=== PATIENT | female | born 1985 | race Caucasian/White ===

== ENCOUNTER → 2017-12-08 | Outpatient (REF) | LOC: M SMT 13:01 | DX: Z02.71 Encounter for disability determination (principal) ==

== ENCOUNTER 2019-09-06 19:22 | Emergency (ER) | payer OTHER ==
[~2019-09-06] VITALS: Ht 175.3 cm; Wt 139.2 kg
[2019-09-06 19:22] VITALS: BP 162/80
[2019-09-06] MEDS ORDERED: FERR325T18 (19:27)
[2019-09-06] MEDS ORDERED: OMEP-218 (19:27)
[2019-09-06] MEDS ORDERED: SYMB16INH (19:27)
[2019-09-06] MEDS ORDERED: GABA600T4 (19:27)
[2019-09-06] MEDS ORDERED: PREN29TA4 PO (19:27)
[2019-09-06 19:58] LABS: HEMATOCRIT 39.5 % (36.0-47.0); HEMOGLOBIN 12.9 g/dl (12.0-15.5); MEAN CORPUSCULAR HEMOGLOBIN 28.7 pg (27.0-33.0); MEAN CORPUSCULAR HGB CONC 32.7 g/dl (32.0-36.5); MEAN CORPUSCULAR VOLUME 87.8 fl (80.0-96.0); PLATELET COUNT, AUTOMATED 237 10^3/uL (150-450); WHITE BLOOD COUNT 7.8 10^3/uL (4.0-10.0)
[2019-09-06 19:59] LABS: BASO % 0.5 % (0.0-1.0); EOS # 0.2 10^3/uL (0.0-0.5); EOS % 2.4 % (0.0-3.0); LYMPH # 2.5 10^3/uL (1.5-5.0); LYMPH % 31.7 % (24.0-44.0); MONO # 0.6 10^3/uL (0.0-0.8); MONO % 8.1 % (0.0-5.0); NEUTROPHILS # 4.4 10^3/uL (1.5-8.5); NEUTROPHILS % 56.1 % (36.0-66.0)
[2019-09-06] MEDS ORDERED: ACETAMINOPHEN 500 MG TAB PO ONE (20:30)
[2019-09-06 20:41] LABS: ALBUMIN 3.3 GM/DL (3.2-5.2); BILIRUBIN,DIRECT 0.1 MG/DL (0.0-0.2); BILIRUBIN,TOTAL 0.2 MG/DL (0.2-1.0); TOTAL PROTEIN 6.8 GM/DL (6.4-8.2)
--- NOTE | 2019-09-06 21:29 | REPVR ---
PROCEDURE INFORMATION: Exam: US Pelvis Complete, Transabdominal and US Duplex Artery and Vein, Ovaries, Complete Exam date and time: 09/06/2019 9:11 PM Age: 33 years old Clinical indication: Pelvic pain; Additional info: Right sided pelvic pain, cramping TECHNIQUE: Imaging protocol: Real-time transabdominal pelvic ultrasound with image documentation. Real-time duplex ultrasound scan of the arterial and venous flow of the ovaries with B-mode, color Doppler flow and spectral waveform analysis. Complete Pelvis, Complete Duplex. COMPARISON: CT ABD PELVIS W/O CONTRAST 06/21/2015 8:36 PM FINDINGS: Uterus/cervix: 10.6 x 4.6 x 6.5 cm. Normal endometrial thickness, measuring approximately 8 mm. Right ovary: 2.8 x 1.9 x 2.7 cm. No mass. Normal arterial and venous blood flow. Left ovary: 2.8 x 1.6 x 2.4 cm. No mass. Normal arterial and venous blood flow. Free fluid: None. Bladder: Normal. IMPRESSION: No acute sonographic findings. Electronically signed by: Cb Saleem On 09/06/2019 21:29:09 PM
--- NOTE | 2019-09-07 08:36 | REP ---
Portable chest x-ray: Single view. History: Wheezing, cough times 1 week. Comparison chest x-ray: September 16, 2021 16. Findings: The lungs are symmetrically aerated and no infiltrate is seen. Pleural angles are sharp. Heart size is normal. Pulmonary vasculature is not increased. No bony abnormality is appreciated. Impression: Negative portable chest x-ray. Electronically Signed by Reed Almazan MD 09/07/2019 08:27 A
== END 2019-09-06 22:38 | disposition home or self-care (01) ==
LOC: M ED 19:22
DX: R05 Cough (principal); R06.2 Wheezing; R11.2 Nausea with vomiting, unspecified; R19.7 Diarrhea, unspecified; Z86.19 Personal history of other infectious and parasitic diseases; Z87.59 Personal history of other complications of pregnancy, childbirth and the puerperium; J45.909 Unspecified asthma, uncomplicated; J44.9 Chronic obstructive pulmonary disease, unspecified; F17.200 Nicotine dependence, unspecified, uncomplicated; F12.10 Cannabis abuse, uncomplicated; Z80.49 Family history of malignant neoplasm of other genital organs; Z91.010 Allergy to peanuts; Z91.012 Allergy to eggs; Z88.2 Allergy status to sulfonamides; Z88.8 Allergy status to other drugs, medicaments and biological substances
CPT/HCPCS: 71045; 76856; 80047; 80076; 83690; 84702; 85025; 87486; 87581; 87633; 87798; 93976; 99284; U0002

== ENCOUNTER → 2019-09-06 | Outpatient (REF) | payer OTHER ==
[~2019-09-06] MED LIST: FERR325T18; GABA600T4; OMEP-218; PREN29TA4 PO; SYMB16INH
[2019-09-07 14:10] LABS: CHLAMYDIA DNA AMPLIFICATION NEGATIVE (NEGATIVE); GC DNA AMPLIFICATION NEGATIVE (NEGATIVE)
== END ==
LOC: M SFHCLERA 19:29
PROVIDERS: ATTEND Nurse Practitioner Family
DX: R10.9 Unspecified abdominal pain (principal)

== ENCOUNTER 2020-03-17 14:53 | Emergency (ER) | payer OTHER ==
[~2020-03-17] VITALS: Ht 175.3 cm; Wt 138.6 kg
[2020-03-17] MEDS ORDERED: TENS1TAB2 PO (15:07)
[2020-03-17] MEDS ORDERED: diazePAM 10MG/2ML SYRINGE (J3360 PER 5MG) IV ONE ×2 (15:30→17:00)
[2020-03-17] MEDS ORDERED: ACETAMINOPHEN 500 MG TAB PO ONE (15:30)
[2020-03-17] MEDS ORDERED: KETOROLAC 30 MG/ML 1ML VIAL IV ONE ×2 (15:30→17:00)
[2020-03-17] MEDS ORDERED: LIDOCAINE 5% (LIDODERM) PATCH TD ONE (17:00)
[2020-03-17] MEDS ORDERED: NS 1,000 ML IV ONE (17:30)
[2020-03-17] MEDS ORDERED: NAPR-837 PO (17:45)
[2020-03-17] MEDS ORDERED: LIDO5DIS41 TOP (17:47)
[2020-03-17] MEDS ORDERED: CYCL-707 PO (17:47)
[2020-03-17] MEDS ORDERED: NS IV ONE (18:15)
[2020-03-17] MEDS ORDERED: KETAMINE HCL IV ONE (18:15)
--- NOTE | 2020-03-17 19:03 | REPVR ---
PROCEDURE INFORMATION: Exam: CT Lumbar Spine Without Contrast Exam date and time: 03/17/2020 6:07 PM Age: 34 years old Clinical indication: Low back pain TECHNIQUE: Imaging protocol: Computed tomography images of the lumbar spine without contrast. Radiation optimization: All CT scans at this facility use at least one of these dose optimization techniques: automated exposure control; mA and/or kV adjustment per patient size (includes targeted exams where dose is matched to clinical indication); or iterative reconstruction. COMPARISON: SPINE LUMBOSACRAL PARTIAL 12/08/2017 1:06 PM FINDINGS: Vertebrae: No acute fracture. Unremarkable sagittal and coronal alignment. Discs/Spinal canal/Neural foramina: L5-S1 shows disc height loss with mild marginal osteophytes. There is a central disc protrusion which does appear to narrow superior aspect of S1 lateral recesses. This could likely be better evaluated with comparison MRI desired. L4-L5 shows mild disc bulge. There are mild facet degenerative changes in mid to lower lumbar spine. Kidneys and ureters: There is a small 2-3 mm stone in upper left kidney. No hydronephrosis. Soft tissues: Unremarkable. IMPRESSION: 1. No acute fracture. 2. Degenerative changes as described. These could be further evaluated with MRI desired. 3. Small nonobstructive left renal stone. Electronically signed by: Nissa Kessler On 03/17/2020 19:02:40 PM
[2020-03-17 19:31] VITALS: BP 162/73
[2020-03-17] MEDS ORDERED: **NOTE PATIENT COMMENT** MISC XX SCH (21:00)
== END 2020-03-17 20:06 | disposition home or self-care (01) ==
LOC: M ED 14:53 → EDBD 14:53 → M ED 20:06
DX: M54.5 Low back pain (principal); M51.36 Other intervertebral disc degeneration, lumbar region; M51.26 Other intervertebral disc displacement, lumbar region; N20.0 Calculus of kidney; J45.909 Unspecified asthma, uncomplicated; J44.9 Chronic obstructive pulmonary disease, unspecified; F17.200 Nicotine dependence, unspecified, uncomplicated; E66.9 Obesity, unspecified; Z79.899 Other long term (current) drug therapy; Z88.2 Allergy status to sulfonamides; Z91.010 Allergy to peanuts; Z91.012 Allergy to eggs
CPT/HCPCS: 72131; 96365; 96375; 96376; 99285; J1885; J3360

== ENCOUNTER 2020-05-18 21:56 | Emergency (ER) | payer OTHER ==
[~2020-05-18] VITALS: Ht 175.3 cm; Wt 136.4 kg
[~2020-05-18 21:56] MED LIST changes: +CYCL-707 PO; +LIDO5DIS41 TOP; +NAPR-837 PO; +TENS1TAB2 PO
[2020-05-18] MEDS ORDERED: TIZA4TAB4 (22:06)
[2020-05-18] MEDS ORDERED: KETOROLAC 30 MG/ML 1ML VIAL IV ONE (23:00)
[2020-05-18] MEDS ORDERED: diazePAM 5MG TABLET PO ONE (23:00)
[2020-05-18] MEDS ORDERED: LIDOCAINE 5% (LIDODERM) PATCH TD ONE (23:00)
[2020-05-18 23:14] LABS: BASO % 0.4 % (0.0-1.0); EOS # 0.3 10^3/uL (0.0-0.5); EOS % 3.4 % (0.0-3.0); HEMATOCRIT 40.3 % (36.0-47.0); HEMOGLOBIN 12.9 g/dl (12.0-15.5); LYMPH # 2.7 10^3/uL (1.5-5.0); LYMPH % 36.8 % (24.0-44.0); MEAN CORPUSCULAR HEMOGLOBIN 27.7 pg (27.0-33.0); MEAN CORPUSCULAR VOLUME 86.5 fl (80.0-96.0); MONO # 0.6 10^3/uL (0.0-0.8); MONO % 7.5 % (0.0-5.0); NEUTROPHILS # 3.8 10^3/uL (1.5-8.5); NEUTROPHILS % 50.8 % (36.0-66.0); PLATELET COUNT, AUTOMATED 260 10^3/uL (150-450); RED BLOOD COUNT 4.66 10^6/uL (4.00-5.40); WHITE BLOOD COUNT 7.4 10^3/uL (4.0-10.0)
[2020-05-18 23:42] LABS: ALBUMIN 3.2 GM/DL (3.2-5.2); ALT/SGPT 23 U/L (12-78); BILIRUBIN,TOTAL 0.2 MG/DL (0.2-1.0); BLOOD UREA NITROGEN 9 MG/DL (7-18); CALCIUM LEVEL 8.4 MG/DL (8.5-10.1); CARBON DIOXIDE LEVEL 27 MEQ/L (21-32); CHLORIDE LEVEL 111 MEQ/L (98-107); CREATININE FOR GFR 0.81 MG/DL (0.55-1.30); GLOMERULAR FILTRATION RATE > 60.0 (>60); GLUCOSE, FASTING 88 MG/DL (70-100); POTASSIUM SERUM 4.1 MEQ/L (3.5-5.1); SODIUM LEVEL 141 MEQ/L (136-145); TOTAL PROTEIN 6.6 GM/DL (6.4-8.2)
[2020-05-19 00:16] LABS: HCG, SERUM QUALITATIVE NEGATIVE (NEGATIVE)
--- NOTE | 2020-05-19 01:03 | REPVR ---
PROCEDURE INFORMATION: Exam: CT Lumbar Spine Without Contrast Exam date and time: 05/18/2020 10:54 PM Age: 34 years old Clinical indication: Low back pain; Additional info: Pain radiating to left leg TECHNIQUE: Imaging protocol: Computed tomography images of the lumbar spine without contrast. Radiation optimization: All CT scans at this facility use at least one of these dose optimization techniques: automated exposure control; mA and/or kV adjustment per patient size (includes targeted exams where dose is matched to clinical indication); or iterative reconstruction. COMPARISON: CT Spine, lumbar w/o contrast 03/17/2020 6:06 PM FINDINGS: Vertebrae: No segmental lumbar vertebral malalignment. Vertebral body height and morphology is maintained. No acute fracture or destructive process. Discs/Spinal canal/Neural foramina: Disc height loss L5-S1 and to a lesser extent L4-L5, with disc bulges and calcified disc annulus at these levels suggesting annular tears. Similar appearance compared to the prior CT. Vasculature: No dilatation of the imaged distal abdominal aorta. Soft tissues: Unremarkable. Other findings: No significant abnormality of the imaged retroperitoneum. IMPRESSION: No acute process or significant interval change compared with the prior CT from 03/27/2020, with prominent disc bulges at L4-L5 and L5-S1 Electronically signed by: Michael Díaz On 05/19/2020 01:03:07 AM
[2020-05-19] MEDS ORDERED: BACL10TA2 PO (01:17)
[2020-05-19] MEDS ORDERED: PRED20TA PO (01:17)
[2020-05-19] MEDS ORDERED: NORC1TAB7 PO ×2 (02:17→02:20)
[2020-05-19] MEDS ORDERED: NORCO, ANEXSIA 5/325MG TABLET (HYDROcodone/ACETAMINOPHEN) PO ONE (02:30)
[2020-05-19 02:54] VITALS: BP 121/75
[2020-05-19] MEDS ORDERED: **NOTE PATIENT COMMENT** MISC XX SCH (09:00)
== END 2020-05-19 02:56 | disposition home or self-care (01) ==
LOC: M ED 21:56
DX: G89.29 Other chronic pain (principal); M54.5 Low back pain; J44.9 Chronic obstructive pulmonary disease, unspecified; K21.9 Gastro-esophageal reflux disease without esophagitis; M32.9 Systemic lupus erythematosus, unspecified; F17.200 Nicotine dependence, unspecified, uncomplicated; F12.10 Cannabis abuse, uncomplicated; E66.01 Morbid (severe) obesity due to excess calories; Z79.899 Other long term (current) drug therapy; Z88.2 Allergy status to sulfonamides; Z91.012 Allergy to eggs; Z91.010 Allergy to peanuts
CPT/HCPCS: 72131; 80053; 84703; 85025; 96374; 99284; J1885

== ENCOUNTER 2020-06-27 10:29 | Emergency (ER) | payer OTHER ==
[~2020-06-27] VITALS: Ht 177.8 cm; Wt 142.1 kg
[~2020-06-27 10:29] MED LIST changes: +BACL10TA2 PO; +NORC1TAB7 PO; +PRED20TA PO; +TIZA4TAB4
--- OUTSIDE RECORDS SUMMARY | 2020-06-27 10:35 | CCD | Continuity of Care Document ---
Author Author Ling AGUAYO MD Organization Unknown Address [address] [place] [id number] Phone [phone] Problems Description No Information Available Social History Type Date Description Comments Sex Unknown Allergies, Adverse Reactions, Alerts Description No Information Available Medications Active Medications SIG Qnty Indications Ordering Provide r Date Gabapentin 600mg Tablets 1 by mouth three times a day 180tabs M50.30 Delgado Raza MD 04/16/2020 Tizanidine HCL 4mg Capsules 1 by mouth three times a day 90caps M50.30 Delgado Raza MD 04/16/2020 Naproxen 500mg Tablets 1 by mouth twice a day 30tabs M50.30 Delgado Raza MD 04/16/2020 Immunizations Description No Information Available Vital Signs Date Vital Result Comment 04/16/2020 10:37am Body Temperature 97.5 F Height 68.5 inches 5'8.50" Weight 310.12 lb BMI (Body Mass Index) 46.5 kg/m2 04/16/2020 10:09am Body Temperature 97.5 F Results Description No Information Available Procedures Date Code Description Status 04/16/2020 83384 X-Ray Spine Cervical 6 Or More V iews Completed Medical Devices Description No Information Available Encounters Type Date Location Provider Dx Diagnosis Office Visit 04/16/2020 10:00a [facility] M50.30 Other cervical disc degeneration, unsp cervical region M51.36 Other intervertebral disc de generation, lumbar region Assessments Date Code Description Provider 05/21/2020 M50.30 Other cervical disc degeneration , unspecified cervical region Ramon Aguayo MD 05/21/2020 M51.36 Other intervertebral disc degene ration, lumbar region Ramon Aguayo MD 04/16/2020 M50.30 Other cervical disc degeneration , unspecified cervical region Shellie Cerda 04/16/2020 M51.36 Other intervertebral disc degene ration, lumbar region Shellie Cerda Plan of Treatment Future Appointment(s):* 05/24/2020 3:30 pm - Shellie Cerda at [facility] 05/21/2020 - Ramon Aguayo MD* M50.30 Other cervical disc degeneration, unspecified cervical region* Follow up:* keep scheduled appt with [facility] * M51.36 Other intervertebral disc degeneration, lumbar region Functional Status Description No Information Available Mental Status Description No Information Available Referrals Description No Information Available
--- OUTSIDE RECORDS SUMMARY | 2020-06-27 10:35 | CCD | Continuity of Care Document ---
Author Author Ling MYERS P.A. Organization Unknown Address [address] [place] [id number] Phone [phone] Problems Description No Information Available Social History Type Date Description Comments Sex Unknown Allergies, Adverse Reactions, Alerts Description No Information Available Medications Active Medications SIG Qnty Indications Ordering Provide r Date Gabapentin 600mg Tablets 1 by mouth three times a day 270tabs M50.30 Delgado Raza MD 04/16/2020 Tizanidine HCL [...] Available Procedures Date Code Description Status 04/16/2020 90167 X-Ray Spine Cervical 6 Or More V iews Completed Medical Devices Description No Information Available Encounters Description No Information Available Assessments Date Code Description Provider 04/16/2020 M50.30 Other cervical disc degeneration , unspecified cervical region Shellie Cerda 04/16/2020 M51.36 Other intervertebral disc degene ration, lumbar region Shellie Cerda Plan of Treatment 04/16/2020 - Shellie Cerda* M50.30 Other cervical disc degeneration, unspecified cervical region* New Medication:* Gabapentin 600 mg - 1 by mouth three times a day * Tizanidine HCL 4 mg - 1 by mouth three times a day * Naproxen 500 mg - 1 by mouth twice a day * New Xrays:* CT Cervical Spine, Ordered: 04/16/20 * Follow up:* with M after ct scan for results * M51.36 Other intervertebral disc degeneration, lumbar region Functional Status Description No Information Available Mental Status Description No Information Available Referrals Description No Information Available
--- OUTSIDE RECORDS SUMMARY | 2020-06-27 10:35 | CCD | Continuity of Care Document ---
Author Author Ling AGUAYO MD Organization Unknown Address [address] [place] [id number] Phone [phone] Problems Description No Information Available Social History [...] Available Procedures Date Code Description Status 04/16/2020 31170 X-Ray Spine Cervical 6 Or More V iews Completed Medical Devices Description No Information Available Encounters Type Date Location Provider Dx Diagnosis Office Visit 05/21/2020 1:15p [place] Aguayo MD M50.30 Other cervical disc degeneration, unsp cervical region M51.36 Other intervertebral disc de generation, lumbar region E66.01 Morbid (severe) obesity due to excess calories Z68.42 Body mass index [BMI] 45.0-4 9.9, adult Office Visit 04/16/2020 10:00a Miranda Castillo, P.A. M50.30 Other cervical disc degeneration, unsp cervical region M51.36 Other intervertebral disc de generation, lumbar region Assessments Date Code Description Provider 05/21/2020 M50.30 Other cervical disc degeneration , unspecified cervical region Ramon Aguayo MD 05/21/2020 M51.36 Other intervertebral disc degene ration, lumbar region Ramon Aguayo MD 05/21/2020 E66.01 Morbid (severe) obesity due to e xcess calories Ramon Aguayo MD 05/21/2020 Z68.42 Body mass index [BMI] 45.0-49.9, adult Ramon Aguayo MD 04/16/2020 M50.30 Other cervical disc degeneration , unspecified cervical region Shellie Cerda 04/16/2020 M51.36 Other intervertebral disc degene ration, lumbar region Nancy Cerda. Plan of Treatment 05/21/2020 - Ramon Aguayo MD* M50.30 Other cervical disc degeneration, unspecified cervical region* Follow up:* keep scheduled appt with M * M51.36 Other intervertebral disc degeneration, lumbar region * E66.01 Morbid (severe) obesity due to excess calories * Z68.42 Body mass index [BMI] 45.0-49.9, adult Functional Status Description No Information Available Mental Status Description No Information Available Referrals Refer to Dr Reason for Referral Status Appt Date Mark Dow PA EMG PER [facility] NO AUTH REQUIRED TO SCHEDULING NT Created [facility] [place] [address] [phone] Mark Dow PA EMG NO AUTH REQUIRED TO SCHEDULING NT [employer] [facility] [place] [address] [phone]
--- OUTSIDE RECORDS SUMMARY | 2020-06-27 10:35 | CCD ---
Author Author [facility] Organization [facility] Address Unknown Phone Unavailable Support Name Relationship Address Phone EMETERIO MARTIN Next Of Kin Unknown Unavailable EMETERIO YOUNG Next Of Kin [address] [place] [address] ABDELRAHMAN JERICHO Next Of Kin [address] [place] [address] SHARATH LAND Next Of Kin [address] [place] [address] Unavailable NO ONE, PATIENT PER Next Of Kin [address] [place] [address] SHARATH ROCHE Next Of Kin [address] [place] [address] U Next Of Kin Unknown Unavailable [place] [address] YULISA BATEMAN Next Of Kin [address] [place] [address] DARIUS [place] Next Of Kin [address] [facility], [address] [place] [address] UNEMPLOYED Next Of Kin Unknown Unavailable NO, CONTACT Next Of Kin Unknown Unavailable JASWINDER BATEMAN Next [place] [address] [place] [address] UE Next Of Kin Unknown Unavailable FRANCISCA FORD Next Of Kin [address] [place] [address] YULISA MARTINS Next Of Kin [address] [place] [address] CHIRAG WHITAKER Next Of Kin ? [place] [address] RAKESH MENA Next Of Kin [address] [place] [address] DANIELE RANDHAWA Next Of Kin [address] [place] [address] OPHELIA ANGEL Next Of Kin [address] [facility] [address] [place] [address] [place] [address] MARIANELA, ZENA [place] [address] TRINATRI Next Of Kin [address] [facility] [address] [place] [address] ST Next Of Kin Unknown Unavailable TRI LANGFORD Next Of Kin [address] [facility] [address] [place] [address] RENETTA MADSEN Next Of Kin [address] [place] [address] YULISA CLEMENT Next Of Kin [address] [facility] [address] [place] [address] Yulisa Mccullough [address] [place] [address] [phone] Care Team Providers Care Operation Research Analyst Name Role Phone MCELHERAN, ORIN PA Unavailable Unavailable MCELHERAN, ORIN PA Unavailable Unavailable MCELHERAN, ORIN PA Unavailable Unavailable MCELHERAN, ORIN PA Unavailable Unavailable MCELHERAN, ORIN PA Unavailable Unavailable MCELHERAN, ORIN PA Unavailable Unavailable MCELHERAN, ORIN PA Unavailable Unavailable MCELHERAN, ORIN PA Unavailable Unavailable MCELHERAN, ORIN PA Unavailable Unavailable MCELHERAN, ORIN PA Unavailable Unavailable MCELHERAN, ORIN PA Unavailable Unavailable MCELHERAN, ORIN PA Unavailable Unavailable MCELHERAN, ORIN PA Unavailable Unavailable MCELHERAN, ORIN PA Unavailable Unavailable MCELHERAN, ORIN PA Unavailable Unavailable MCELHERAN, ORIN PA Unavailable Unavailable MCELHERAN, ORIN PA Unavailable Unavailable MCELHERAN, ORIN PA Unavailable Unavailable [facility], ORIN PA Unavailable Unavailable MCELHERAN, ORIN PA Unavailable Unavailable MCELHERAN, ORIN PA Unavailable Unavailable MCELHERAN, ORIN PA Unavailable Unavailable MCELHERAN, ORIN PA Unavailable Unavailable MCELHERAN, ORIN PA Unavailable Unavailable MCELHERAN, ORIN PA Unavailable Unavailable MCELHERAN, ORIN PA Unavailable Unavailable MCELHERAN, ORIN PA Unavailable Unavailable ORIN MYERS Unavailable Unavailable OREN, Isidra HIGGINS MD Unavailable Unavailable OREN, Isidra HIGGINS MD Unavailable Unavailable OREN, Isidra HIGGINS MD Unavailable Unavailable OREN, Isidra HIGGINS MD Unavailable Unavailable OREN, Isidra HIGGINS MD Unavailable Unavailable OREN, Isidra HIGGINS MD Unavailable Unavailable OREN, Isidra HIGGINS MD Unavailable Unavailable OREN, Isidra HIGGINS MD Unavailable Unavailable OREN, Isidra HIGGINS MD Unavailable Unavailable OREN, Isidra HIGGINS MD Unavailable Unavailable OREN, Isidra HIGGINS MD Unavailable Unavailable OREN, Isidra HIGGINS MD Unavailable Unavailable OREN, Isidra HIGGINS MD Unavailable Unavailable OREN, Isidra HIGGINS MD Unavailable Unavailable OREN, Isidra HIGGINS MD Unavailable Unavailable OREN, Isidra HIGGINS MD Unavailable Unavailable OREN, Isidra HIGGINS MD Unavailable Unavailable OREN, Isidra HIGGINS MD Unavailable Unavailable OREN, sIidra HIGGINS MD Unavailable Unavailable OREN, Isidra HIGGINS MD Unavailable Unavailable OREN, Isidra HIGGINS MD Unavailable Unavailable OREN, Isidra HIGGINS MD Unavailable Unavailable OREN, Isidra HIGGINS MD Unavailable Unavailable OREN, Isidra HIGGINS MD Unavailable Unavailable OREN, Isidra HIGGINS MD Unavailable Unavailable OREN, Isidra HIGGINS MD Unavailable Unavailable OREN, Isidra HIGGINS MD Unavailable Unavailable OREN, Isidra HIGGINS MD Unavailable Unavailable OREN, Isidra HIGGINS MD Unavailable Unavailable OREN, Isidra HIGGINS MD Unavailable Unavailable OREN, Isidra HIGGINS MD Unavailable Unavailable OREN, Isidra HIGGINS MD Unavailable Unavailable OREN, Isidra HIGGINS MD Unavailable Unavailable OREN, Isidra HIGGINS MD Unavailable Unavailable OREN, Isidra HIGGINS MD Unavailable Unavailable OREN, Isidra HIGGINS MD Unavailable Unavailable OREN, Isidra HIGGINS MD Unavailable Unavailable OREN, Isidra HIGGINS MD Unavailable Unavailable OREN, Isidra HIGGINS MD Unavailable Unavailable OREN, Isidra HIGGINS MD Unavailable Unavailable OREN, Isidra HIGGINS MD Unavailable Unavailable OREN, Isidra HIGGINS MD Unavailable Unavailable OREN, Isidra HIGGINS MD Unavailable Unavailable OREN, Isidra HIGGINS MD Unavailable Unavailable OREN, Isidra HIGGINS MD Unavailable Unavailable OREN, Isidra HIGGINS MD Unavailable Unavailable OREN, Isidra HIGGINS MD Unavailable Unavailable OREN, Isidra HIGGINS MD Unavailable Unavailable OREN, Isidra HIGGINS MD Unavailable Unavailable OREN, Isidra HIGGINS MD Unavailable Unavailable OREN, Isidra HIGGINS MD Unavailable Unavailable OREN, Isidra HIGGINS MD Unavailable Unavailable OREN, Isidra HIGGINS MD Unavailable Unavailable OREN, Isidra HIGGINS MD Unavailable Unavailable OREN, Isidra HIGGINS MD Unavailable Unavailable OREN, Isidra HIGGINS MD Unavailable Unavailable OREN, Isidra HIGGINS MD Unavailable Unavailable OREN, Isidra HIGGINS MD Unavailable Unavailable OREN, Isidra HIGGINS MD Unavailable Unavailable OREN, Isidra HIGGINS MD Unavailable Unavailable OREN, Isidra HIGGINS MD Unavailable Unavailable OREN, Isidra HIGGINS MD Unavailable Unavailable OREN, Isidra HIGGINS MD Unavailable Unavailable OREN, Isidra HIGGINS MD Unavailable Unavailable OREN, Isidra HIGGINS MD Unavailable Unavailable OREN, Isidra HIGGINS MD Unavailable Unavailable OREN, Isidra HIGGINS MD Unavailable Unavailable OREN, Isidra HIGGINS MD Unavailable Unavailable OREN, Isidra HIGGINS MD Unavailable Unavailable OREN, Isidra HIGGINS MD Unavailable Unavailable OREN, Isidra HIGGINS MD Unavailable Unavailable OREN, Isidra HIGGINS MD Unavailable Unavailable OREN, Isidra HIGGINS MD Unavailable Unavailable OREN, Isidra HIGGINS MD Unavailable Unavailable OREN, Isidra HIGGINS MD Unavailable Unavailable OREN, Isidra HIGGINS MD Unavailable Unavailable OREN, Isidra HIGGINS MD Unavailable Unavailable OREN, Isidra HIGGINS MD Unavailable Unavailable OREN, Isidra HIGGINS MD Unavailable Unavailable OREN, Isidra HIGGINS MD Unavailable Unavailable OREN, Isidra HIGGINS MD Unavailable Unavailable OREN, Isidra HIGGINS MD Unavailable Unavailable OREN, Isidra HIGGINS MD Unavailable Unavailable OREN, Isidra HIGGINS MD Unavailable Unavailable OREN, Isidra HIGGINS MD Unavailable Unavailable OREN, Isidra HIGGINS MD Unavailable Unavailable OREN, Isidra HIGGINS MD Unavailable Unavailable OREN, Isidra HIGGINS MD Unavailable Unavailable OREN, Isidra HIGGINS MD Unavailable Unavailable OREN, Isidra HIGGINS MD Unavailable Unavailable [facility], [facility]B Unavailable Unavailable ELEANOR RUANO MD Unavailable Unavailable Isidra Gibbons NPP Unavailable Unavailable Isidra Gibbons NPP Unavailable Unavailable Marysol Bridges MD Unavailable Unavailable Marysol Bridges MD Unavailable Unavailable Marysol Bridges MD Unavailable Unavailable Marysol Bridges MD Unavailable Unavailable Marysol Bridges MD Unavailable Unavailable Bridges, L Ramon MD Unavailable Unavailable Bridges, L Ramon MD Unavailable Unavailable Bridges, L Ramon MD Unavailable Unavailable Bridges, L Ramon MD Unavailable Unavailable Bridges, L Ramon MD Unavailable Unavailable Bridges, L Ramon MD Unavailable Unavailable Bridges, L Ramon MD Unavailable Unavailable Bridges, L Ramon MD Unavailable Unavailable Bridges, L Ramon MD Unavailable Unavailable Bridges, L Ramon MD Unavailable Unavailable Bridges, L Ramon MD Unavailable Unavailable Bridges, L Ramon MD Unavailable Unavailable Bridegs, L Ramon MD Unavailable Unavailable Bridges, L Ramon MD Unavailable Unavailable Bridges, L Ramon MD Unavailable Unavailable Bridges, L Ramon MD Unavailable Unavailable Bridges, L Ramon MD Unavailable Unavailable Bridges, L Ramon MD Unavailable Unavailable Bridges, L Ramon MD Unavailable Unavailable Bridges, L Ramon MD Unavailable Unavailable Bridges, L Ramon MD Unavailable Unavailable Bridges, L Ramon MD Unavailable Unavailable Bridges, L Ramon MD Unavailable Unavailable Bridges, L Ramon MD Unavailable Unavailable Bridges, L Ramon MD Unavailable Unavailable Bridges, L Ramon MD Unavailable Unavailable Bridges, L Ramon MD Unavailable Unavailable Bridges, L Ramon MD Unavailable Unavailable Bridges, L Ramon MD Unavailable Unavailable Bridges, L Ramon MD Unavailable Unavailable Bridges, L Ramon MD Unavailable Unavailable Bridges, L Ramon MD Unavailable Unavailable Bridges, L Ramon MD Unavailable Unavailable Bridges, L Ramon MD Unavailable Unavailable Bridges, L Ramon MD Unavailable Unavailable Bridges, L Ramon MD Unavailable Unavailable Bridges, L Ramon MD Unavailable Unavailable Bridges, L Ramon MD Unavailable Unavailable Bridges, L Ramon MD Unavailable Unavailable Bridges, L Ramon MD Unavailable Unavailable Bridges, L Ramon MD Unavailable Unavailable Bridges, L Ramon MD Unavailable Unavailable COMMEY, KAMILLA Unavailable Unavailable Re-disclosure Warning The records that you are about to access may contain information from federally-assisted alcohol or drug abuse programs. If such information is present, then the following federally mandated warning applies: This information has been disclosed to you from records protected by federal confidentiality rules (42 CFR part 2). The federal rules prohibit you from making any further disclosure of this information unless further disclosure is expressly permitted by the written consent of the person to whom it pertains or as otherwise permitted by 42 CFR part 2. A general authorization for the release of medical or other information is NOT sufficient for this purpose. The Federal rules restrict any use of the information to criminally investigate or prosecute any alcohol or drug abuse patient.The records that you are about to access may contain highly sensitive health information, the redisclosure of which is protected by Article 27-F of the [facility] Public Health law. If you continue you may have access to information: Regarding HIV / AIDS; Provided by facilities licensed or operated by the [facility] Office of Mental Health; or Provided by the [facility] Office for People With Developmental Disabilities. If such information is present, then the following [facility] mandated warning applies: This information has been disclosed to you from confidential records which are protected by state law. State law prohibits you from making any further disclosure of this information without the specific written consent of the person to whom it pertains, or as otherwise permitted by law. Any unauthorized further disclosure in violation of state law may result in a fine or fdc sentence or both. A general authorization for the release of medical or other information is NOT sufficient authorization for further disc losure. Allergies and Adverse Reactions Type Description Substance Reaction Status Data Source(s ) Propensity to adverse reactions TREE NUT Tree Nut Swelling Medium Active [facility] Medium Propensity to adverse reactions SULFA ANTIBIOTICS Sulfa Antibiotics Hives High Active [facility] High Propensity to adverse reactions EGGS OR EGG-DERIVED PRODUCTS Eggs Or Egg-Derived Products Nausea And Vomiting Medium Active [facility] Medium Family History Family Member Name Family Member Gender Family Member Status Date o f Status Description Data Source(s) Unknown Male Condition Family Member S [facility] Encounters Encounter Providers Location Date Indications Data Source(s ) Recurring Patient Attender: Timmy Gibbons NPPReferrer: [facility] 06/21/2020 12:00:00 AM EST [facility] Outpatient Attender: Ramon Bridges MD Physical Therapy 05/21/2020 1 2:15:00 PM EST [facility] ([facility]) Outpatient Attender: ORIN GARCIA Physical Therapy 04/16/2020 09:00:00 AM EST [facility] ([facility]) Outpatient Attender: NESHA MENDOZA 11/15/2019 07:48:31 PM EDT [facility] Outpatient 09/26/2019 05:30:00 AM EDT [address] [id number] 09/06/2019 12:00:00 AM EDT eCW1 ([facility]) Preadmit Attender: ELEANOR RUANO MD 05/10/2019 01:00:00 PM EST [facility] Admission cancelled. Disregard status an d admitted date. Recurring Patient Referrer: RONALDO LOTT MD 05/10/2019 10: 07:45 AM EST [facility] Recurring Patient Referrer: RONALDO LOTT MD 05/10/2019 10: 05:24 AM EST [facility] Medications Medication Brand Name Start Date Product Form Dose Route Admi nistrative Instructions Pharmacy Instructions Status Indications Reaction Description Data Source(s) gabapentin 600 MG Oral Tablet gabapentin (NEURONTIN) 6 00 MG tablet gabapentin (NEURONTIN) 600 MG tablet 06/14/2020 12:00:00 AM EST active [facility] gabapentin 600 MG Oral Tablet Gabapentin 04/16/2020 12:00:00 AM EST ORAL active [facility] ([facility] ) tizanidine 4 MG Oral Capsule Tizanidine HCL 04/16/2020 12:00:00 AM EST ORAL active [facility] ([facility] ) Naproxen 500 MG Oral Tablet Naproxen 04/16/2020 12:00:00 AM EST ORAL active [facility] ([facility] ) 1.5 mg 03/14/2020 12:00:00 AM EDT tablet 1 TAKE BY MOUTH DIRECTED TAKE BY MOUTH DIRECTED SOLD: 03/14/2020 [facility] Insurance Providers Payer name Policy type / Coverage type Policy ID Covered republican ID Covered republican's relationship to hawk Policy Hawk Plan Information MARIA GUADALUPE [id number] SP [id number] MARIA GUADALUPE MEDICAID [id number] Fina 7 [id number] MARIA GUADALUPE MEDICAID [id number] MARIA GUAD[place]PE CARE [place] [id number] S [id number] [facility] COMMUNITY [facility]AN [facility] [id number] SP [id number] [place] Medicaid F [id number] SELF 7 [id number] MARIA GUADALUPE MEDICAID [id number] S [id number] [place] CARE [place] [id number] Unemployed [id number] MARIA GUADALUPE CARE [id number] S [id number] MARIA GUADALUPE CARE [id number] S [id number] MARIA GUADALUPE CARE [id number] S [id number] [facility] [id number] S [id number] AUTO INS [id number] U [id number] U [id number] [place] [id number] Unemployed 0 [id number] ANSI-Commercial [id number] ANSI-Commercial [id number] ANSI-Commercial [id number] ANSI-Commercial [id number] [facility] [id number] Unemployed [id number] No Fault Insurance [id number] Unemployed [id number] ANSI-Commercial [id number] ANSI-Commercial [id number] ANSI-Commercial [id number] ANSI-Commercial [id number] [facility] Commercial [id number] [facility] [id number] Ins Co NF Workers Compensation [id number] ANSI-Commercial [id number] ANSI-Auto Insurance [id number] ANSI-Commercial [id number] ANSI-Commercial [id number] ANSI-Commercial [id number] ANSI-Commercial [id number] ANSI-Commercial [id number] ANSI-Commercial [id number] ANSI-Commercial [id number] ANSI-Commercial [id number] ANSI-Commercial [id number] ANSI-Commercial [id number] S [id number] ANSI-Commercial [id number] ANSI-Commercial [id number] ANSI-Commercial [id number] ANSI-Commercial [id number] ANSI-Commercial [id number] ANSI-Commercial [id number] ANSI-Commercial [id number] ANSI-Commercial [id number] [facility] O [id number] S [id number] MEDICAID [id number] MEDICAID [id number] Self [id number] U [id number] Self [id number] [facility] I [id number] Self [id number] MEDICAID PROF FEES UNAVAILABLE S UNAVAILABLE OTHER1 [id number] S [id number] SELF-PAY [id number] S [id number] [facility] Self UNAVAILABLE UNAVAILA BLE HEALTHNET O [id number] S [id number] HEALTHNET O [id number] S [id number] [facility] P [id number] P [id number] MEDICAID S [id number] S [id number] N REGIONAL CLAIMS PATRIC-O/P [id number] 01 [id number] MEDICAID -O/P EMERGENCY ROOM [id number] N REGIONAL CLAIMS PATRIC-PHYSICIAN [id number] 01 [id number] N REGIONAL CLAIMS PATRIC -O/P [id number] 01 [id number] [facility] [id number] HU2 [id number] MEDICAID [id number] SP [id number] NCO EPALS [id number] SP [id number] [facility] [id number] HU [id number] [facility] [place] [facility] [id number] HU [id number] MEDICAID [id number] SP [id number] MEDICAID [id number] PF [id number] PCAP [facility] [id number] SP [id number] SELF PAY UNAVAILABLE UNAVAILA BLE MEDICAID [id number] SP [id number] OTHER NO FAULT [id number] SP [id number] SELF PAY P UNAVAILABLE UNAVAILA BLE [facility] [place] [facility] [id number] HU [id number] MEDICAID [id number] SP [id number] NCO EPALS [id number] SP [id number] Problems, Conditions, and Diagnoses Code Display Name Description Problem Type Effective Dates Data Source(s) Z71.89 Other specified counseling Other specified counseling Diagnosis 06/21/2020 09:18:18 AM EST [facility] F50.89 Other specified eating disorder Other specified eating disorder Diagnosis 06/21/2020 09:18:18 AM EST [facility] Z80.3 Family history of malignant neoplasm of breast FAMILY HISTORY OF MALIGNANT NEOPLASM OF Diagnosis 05/10/2019 01:00:00 PM EST [facility]Procedures Procedure Description Date Indications Data Source(s) RADEX SPINE CRV COMPL W/OBLQ&FLEX&/XTN STDS 04/16/2020 12:00:00 AM EST [facility] ([facility]) URINE-NO MICRO 09/06/2019 12:00:00 AM EDT eCW1 ([facility]) URINE TEST 09/06/2019 12:00:00 AM EDT eCW1 ([facility]) Results ID Date Data Source [id number] 05/24/2020 07:33:02 PM EST [facility] Name Value Range Interpretation Code Description Data Kayleen rce(s) Supporting Document(s) HEMOGLOBIN A1C @ 5.3 % (4.0-6.0) [facility] Performed using Siemens Gaffney immunoassa y.Care must be taken when interpreting [id number] in patients with a hemoglobin variantor decreased erythrocyte lifespan. Values 5.7 - 6.4% suggest prediabetes.Values >=6.5% are diagnostic for diabetes.REFERENCE: DIABETES CARE 2018: 41(S13-S27). EST AVERAGE GLUCOSE 105 mg/dL Laboratory [facility] ID Date Data Source [id number] 05/24/2020 07:47:30 PM EST [facility] Name Value Range Interpretation Code Description Data Kayleen rce(s) Supporting Document(s) TSH,ULTRASENSITIVE @ 0.801 mIU/L (0.360-4.170) Laboratory [facility] ID Date Data Source [id number] 09/06/2019 09:00:00 PM EDT [facility] Name Value Range Interpretation Code Description Data Kayleen rce(s) Supporting Document(s) SARS CORONAVIRUS 2 RNA [facility] This lab was ordered by [facility] and reported by [facility]. ID Date Data Source CHGCTV - CHLAMYDIA, GC & TRICH AMP (Microbiology) 09/06/2019 12:00:00 AM EDT eCW1 ([facility]) Name Value Range Interpretation Code Description Data Kayleen rce(s) Supporting Document(s) NOT DETECTED NEGATIVE Trichomonas vaginalis ( AMP) eCW1 ([facility]) Procedure Social History Code Duration Value Status Description Data Source(s ) Alcohol intake 06/21/2020 12:00:00 AM EST Not Currently completed [facility] Cigarettes smoked current (pack per day) - Reported 06/21/19 12:00:00 AM EST UNK completed [facility] Smoking 06/21/2020 12:00:00 AM EST Current every day smoker co mpleted Current every day smoker [facility] Vital Signs ID Date Data Source UNK Name Value Range Interpretation Code Description Data Source(s) Body mass index (BMI) [Ratio] 45.78 kg/m2 45.78 kg/m2 [facility] Body weight 140.615 kg 140.615 kg [facility] Body height 175.3 cm 175.3 cm [facility] Body mass index (BMI) [Ratio] 46.5 kg/m2 46.5 k g/m2 [facility] ([facility]) Body weight 310.12 [lb_av] 310.12 [lb_av] [facility] T ([facility]) Body height 68.5 [in_i] 68.5 [in_i] [facility] ([facility]) 5'8.50" Body temperature 97.5 [degF] 97.5 [degF] [facility] ([facility]) Body temperature 97.5 [degF] 97.5 [degF] [facility] ([facility] Diastolic blood pressure 86 mm[Hg] 86 mm[Hg] eCW1 ([facility]) Systolic blood pressure 142 mm[Hg] 142 mm[Hg] e CW1 ([facility]) Body temperature 98.7 [degF] 98.7 [degF] eCW1 ( [facility]) Respiratory rate 18 /min 18 /min eCW1 ([facility]) Heart rate 76 /min 76 /min eCW1 ([facility]) Body mass index (BMI) [Ratio] 45.33 kg/m2 45.33 kg/m2 eCW1 ([facility]) Body height 69 [in_us] 69 [in_us] eCW1 ([facility]) Body weight Measured 307 [lb_av] 307 [lb_av] eC W1 ([facility]) Patient Treatment Plan of Care Planned Activity Planned Date Details Description Data Source (s) gabapentin 600 MG Oral Tablet 06/14/2020 12:00:00 AM [facility]
--- OUTSIDE RECORDS SUMMARY | 2020-06-27 10:35 | CCD | Continuity of Care Document ---
Author Author Ling [facility]ERS [facility] Organization Unknown Address [address] [place] [address] Phone [phone] Problems Description No Information Available Social History [...] Available Procedures Date Code Description Status 04/16/2020 11994 X-Ray Spine Cervical 6 Or More V iews Completed Medical Devices Description No Information Available Encounters Type Date Location Provider Dx Diagnosis Office Visit 04/16/2020 10:00a Shellie Alcantar M50.30 Other cervical disc degeneration, unsp cervical region M51.36 Other intervertebral disc de generation, lumbar region Assessments Date Code Description Provider 04/16/2020 M50.30 Other cervical disc degeneration , unspecified cervical region Shellie Cerda 04/16/2020 M51.36 Other intervertebral disc degene ration, lumbar region Shellie Cerda Plan of Treatment Future Appointment(s):* 05/24/2020 3:30 pm - Shellie Cerda at [facility] 04/16/2020 - Shellie Cerda* M50.30 Other cervical disc degeneration, unspecified cervical region* New Medication:* Gabapentin 600 mg - 1 by mouth three times a day * Tizanidine HCL 4 mg - 1 by mouth three times a day * Naproxen 500 mg - 1 by mouth twice a day * Follow up:* with [facility] after ct scan for results * M51.36 Other intervertebral disc degeneration, lumbar region Functional Status Description No Information Available Mental Status Description No Information Available Referrals Description No Information Available
[2020-06-27] MEDS ORDERED: AMPICILLIN SOD/SULBACTAM SOD 3 GM in D5W MINI-BAG PLUS 100 ML IV ONE (11:00)
[2020-06-27] MEDS ORDERED: MORPHINE 4 MG/ML 1ML VIAL/SYRINGE (J2270) IV ONE (11:00)
[2020-06-27 11:19] LABS: BASO % 0.6 % (0.0-1.0); EOS # 0.1 10^3/uL (0.0-0.5); EOS % 2.3 % (0.0-3.0); HEMATOCRIT 41.2 % (36.0-47.0); HEMOGLOBIN 13.1 g/dl (12.0-15.5); LYMPH # 1.5 10^3/uL (1.5-5.0); LYMPH % 28.7 % (24.0-44.0); MEAN CORPUSCULAR HEMOGLOBIN 27.5 pg (27.0-33.0); MEAN CORPUSCULAR HGB CONC 31.8 g/dl (32.0-36.5); MEAN CORPUSCULAR VOLUME 86.6 fl (80.0-96.0); MONO # 0.2 10^3/uL (0.0-0.8); MONO % 4.3 % (0.0-5.0); NEUTROPHILS # 3.3 10^3/uL (1.5-8.5); NEUTROPHILS % 62.6 % (36.0-66.0); PLATELET COUNT, AUTOMATED 270 10^3/uL (150-450); RED BLOOD COUNT 4.76 10^6/uL (4.00-5.40); WHITE BLOOD COUNT 5.3 10^3/uL (4.0-10.0)
[2020-06-27 11:45] LABS: BLOOD UREA NITROGEN 11 MG/DL (7-18); CALCIUM LEVEL 8.8 MG/DL (8.5-10.1); CARBON DIOXIDE LEVEL 25 MEQ/L (21-32); CHLORIDE LEVEL 109 MEQ/L (98-107); CREATININE FOR GFR 0.85 MG/DL (0.55-1.30); GLOMERULAR FILTRATION RATE > 60.0 (>60); GLUCOSE, FASTING 114 MG/DL (70-100); POTASSIUM SERUM 5.2 MEQ/L (3.5-5.1); SODIUM LEVEL 139 MEQ/L (136-145)
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
[2020-06-27] MEDS ORDERED: HYDR-3713 PO (12:06)
[2020-06-27] MEDS ORDERED: AUGM875T28 PO (12:06)
[2020-06-27 12:22] VITALS: BP 139/73
== END 2020-06-27 12:25 | disposition home or self-care (01) ==
LOC: M ED 10:29
DX: K02.9 Dental caries, unspecified (principal); K04.7 Periapical abscess without sinus; K03.81 Cracked tooth; J45.909 Unspecified asthma, uncomplicated; K21.9 Gastro-esophageal reflux disease without esophagitis; F17.200 Nicotine dependence, unspecified, uncomplicated; Z79.899 Other long term (current) drug therapy; Z88.2 Allergy status to sulfonamides; Z91.012 Allergy to eggs; Z91.010 Allergy to peanuts
CPT/HCPCS: 80048; 85025; 86140; 96365; 96375; 99283; J2270

== ENCOUNTER 2020-08-22 14:13 | Emergency (ER) | payer OTHER ==
[~2020-08-22] VITALS: Ht 172.7 cm; Wt 133.2 kg
[~2020-08-22 14:13] MED LIST changes: +AUGM875T28 PO; +HYDR-3713 PO
[2020-08-22] MEDS ORDERED: ONDANSETRON 4MG/2ML VIAL IV ONE (14:40)
--- NOTE | 2020-08-22 15:14 | REP ---
INDICATION: cough, bradycardia. COMPARISON: Comparison chest x-ray September 06, 2019.. TECHNIQUE: Upright portable AP radiograph. FINDINGS: Monitoring electrodes are seen. The lungs are well inflated and clear. The pleural angles are sharp. The heart is not enlarged. Pulmonary vasculature is not increased. No acute bony abnormality is seen. Exam quality is inhibited slightly by body habitus. IMPRESSION: No active disease. No infiltrate seen. <Electronically signed by Andry Almazan > 08/22/20 [id number]
[2020-08-22 15:23] LABS: BASO # 0.1 10^3/uL (0.0-0.2); BASO % 0.7 % (0.0-1.0); EOS # 0.2 10^3/uL (0.0-0.5); EOS % 2.7 % (0.0-3.0); HEMATOCRIT 40.2 % (36.0-47.0); HEMOGLOBIN 13.3 g/dl (12.0-15.5); LYMPH # 2.1 10^3/uL (1.5-5.0); LYMPH % 27.9 % (24.0-44.0); MEAN CORPUSCULAR HEMOGLOBIN 28.1 pg (27.0-33.0); MEAN CORPUSCULAR HGB CONC 33.1 g/dl (32.0-36.5); MONO # 0.6 10^3/uL (0.0-0.8); MONO % 7.3 % (2.0-8.0); NEUTROPHILS # 4.5 10^3/uL (1.5-8.5); NEUTROPHILS % 60.2 % (36.0-66.0); PLATELET COUNT, AUTOMATED 295 10^3/uL (150-450); RED BLOOD COUNT 4.73 10^6/uL (4.00-5.40); WHITE BLOOD COUNT 7.5 10^3/uL (4.0-10.0)
[2020-08-22 15:45] LABS: ALBUMIN 3.4 GM/DL (3.2-5.2); ALT/SGPT 30 U/L (12-78); BILIRUBIN,DIRECT 0.1 MG/DL (0.0-0.2); BILIRUBIN,TOTAL 0.3 MG/DL (0.2-1.0); BLOOD UREA NITROGEN 7 MG/DL (7-18); CALCIUM LEVEL 8.4 MG/DL (8.5-10.1); CARBON DIOXIDE LEVEL 26 MEQ/L (21-32); CHLORIDE LEVEL 109 MEQ/L (98-107); CK-MB VALUE MASS < 1.0 NG/ML (<3.6); CPK CREATINE PHOSPHOKINASE 57 U/L (26-192); CREATININE FOR GFR 0.66 MG/DL (0.55-1.30); GLOMERULAR FILTRATION RATE > 60.0 (>60); GLUCOSE, FASTING 82 MG/DL (70-100); MB/CK RELATIVE INDEX 1.75 (< OR =4); SODIUM LEVEL 140 MEQ/L (136-145); TOTAL PROTEIN 6.8 GM/DL (6.4-8.2); TROPONIN I < 0.02 NG/ML (< 0.10)
[2020-08-22 16:06] LABS: AMPHETAMINES LEVEL URINE NEGATIVE (NEGATIVE); BARBITURATES URINE NEGATIVE (NEGATIVE); BENZODIAZEPINES URINE NEGATIVE (NEGATIVE); CANNABINOIDS URINE POSITIVE (NEGATIVE); COCAINE METABOLITE URINE NEGATIVE (NEGATIVE); METHADONE URINE NEGATIVE (NEGATIVE); OPIATES URINE NEGATIVE (NEGATIVE); PHENCYCLIDINE URINE NEGATIVE (NEGATIVE)
[2020-08-22] MEDS ORDERED: ONDA4TAB6 PO (18:12)
[2020-08-22 18:45] VITALS: BP 122/58
--- NOTE | 2020-08-23 01:06 | ECGEPIP ---
[facility] - ED Test Date: 2020-08-22 Pat Name: JASWINDER MARTINS Department: Room: - Gender: Female Screen Cleaner: ELIANA : 1985 Requested By: Corrina Andrea Order Number: [id number] Reading MD: Aakash Molina Measurements Intervals Paia Rate: 67 P: 13 NJ: 162 QRS: -9 QRSD: 100 T: 20 QT: 430 QTc: 454 Interpretive Statements Normal sinus rhythm POOR R WAVE PROGRESSION SIMILAR TO 09/17/15 Electronically Signed on 08-23-2020 1:06:13 EDT by Aakash Molina
== END 2020-08-22 19:00 | disposition home or self-care (01) ==
LOC: M ED 14:13 → UNDOADMIN 17:04 → M ED INP 17:04 → M ED 19:00
DX: R11.0 Nausea (principal); I49.9 Cardiac arrhythmia, unspecified; I51.9 Heart disease, unspecified; G89.29 Other chronic pain; M54.9 Dorsalgia, unspecified; F12.10 Cannabis abuse, uncomplicated; Z79.899 Other long term (current) drug therapy; Z88.2 Allergy status to sulfonamides; Z91.012 Allergy to eggs; Z91.018 Allergy to other foods
CPT/HCPCS: 36415; 71045; 80048; 80076; 80307; 82550; 82553; 84443; 85025; 87798; 93005; 93041; 94760; 96374; 99285; J2405

== ENCOUNTER 2020-09-23 18:47 | Emergency (ER) | payer OTHER ==
[~2020-09-23] VITALS: Ht 175.3 cm; Wt 133.2 kg
[~2020-09-23 18:47] MED LIST changes: +ONDA4TAB6 PO
[2020-09-23 18:53] VITALS: BP 168/73
== END 2020-09-23 22:19 | disposition left against medical advice (07) ==
LOC: M ED 18:47
DX: Z53.21 Procedure and treatment not carried out due to patient leaving prior to being seen by health care provider (principal)

== ENCOUNTER → 2020-09-28 | Outpatient (CLI) | payer OTHER ==
--- NOTE | 2020-09-28 11:18 | REP ---
INDICATION: PAIN COMPARISON: None. TECHNIQUE: Internal rotation, external rotation, axillary and Y view. FINDINGS: No acute fracture or dislocation. The acromioclavicular and glenohumeral joints are intact. No periarticular calcifications or degenerative changes are appreciated. Sub acromial space is normal. Surrounding soft tissues are unremarkable. IMPRESSION: Normal age-appropriate left shoulder radiographs. <Electronically signed by Jakob Meng > 09/28/20 [id number]
== END ==
LOC: M SOG 10:53
PROVIDERS: ATTEND Orthopaedic Surgery Sports Medicine
DX: M75.42 Impingement syndrome of left shoulder (principal)

== ENCOUNTER → 2020-12-31 | Outpatient (CLI) | payer OTHER | LOC: M PLAIMG 15:36 | PROVIDERS: ATTEND Orthopaedic Surgery Sports Medicine | DX: M75.42 Impingement syndrome of left shoulder (principal); Z53.9 Procedure and treatment not carried out, unspecified reason ==

== ENCOUNTER → 2021-01-25 | Outpatient (CLI) | payer OTHER ==
--- NOTE | 2021-01-25 17:05 | REP ---
INDICATION: IMPINGEMENT SYNDROME LT SHOULDER. COMPARISON: Radiographs 01/25/2021. TECHNIQUE: Coronal oblique T1, T2 fat sat, sagittal oblique T2 fat sat, axial T2 fat sat, gradient echo. FINDINGS: Rotator cuff: No evidence of tear. Acromioclavicular joint: There are mild hypertrophic degenerative changes of the acromioclavicular joint. Acromion: Type 2 Biceps Tendon: In bicipital groove, no tenosynovitis. Hill Sach's deformity: None. Deltoid muscle: No abnormal signal. Biceps labral complex: Intact. Labrum: No tear. Cartilage: No defects. Bone marrow: No abnormal signal. Joint fluid: No effusion. IMPRESSION: No evidence of internal derangement. There are mild hypertrophic degenerative changes of the acromioclavicular joint. <Electronically signed by Missael Hernandez > 01/25/21 6164
== END ==
LOC: M PLARAD 15:14
PROVIDERS: ATTEND Orthopaedic Surgery Sports Medicine
DX: M75.42 Impingement syndrome of left shoulder (principal); M19.012 Primary osteoarthritis, left shoulder

== ENCOUNTER → 2021-02-20 | Outpatient (CLI) | payer OTHER ==
--- NOTE | 2021-02-21 19:21 | REP ---
INDICATION: LT KNEE PAIN. COMPARISON: None. TECHNIQUE: AP, lateral, sunrise views of the left knee FINDINGS: Osseous structures, joint spaces, and surrounding soft tissues are essentially age-appropriate and within normal limits. No overt arthritic changes. No evidence for acute injury. No effusion. IMPRESSION: Essentially age-appropriate left knee radiographs. <Electronically signed by Jakob Meng > 02/21/21 [id number]
== END ==
LOC: M SOG 11:09
PROVIDERS: ATTEND Orthopaedic Surgery
DX: M25.562 Pain in left knee (principal)

== ENCOUNTER → 2021-04-08 | Outpatient (REF) | payer OTHER ==
[~2021-04-08] MED LIST changes: +ALBU8.5H; +FLUTISP NARES
== END ==
LOC: M LAB REF 16:24
PROVIDERS: ATTEND Physician Assistant Medical
DX: R50.9 Fever, unspecified (principal)

== ENCOUNTER 2021-04-09 21:45 | Emergency (ER) | payer OTHER ==
[~2021-04-09] VITALS: Ht 175.3 cm; Wt 115.0 kg
[~2021-04-09 21:45] MED LIST changes: -ALBU8.5H; -FLUTISP NARES
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
--- OUTSIDE RECORDS SUMMARY | 2021-04-09 21:56 | CCD ---
Author Author [facility] Address Unknown Phone Unavailable Support Name Relationship Address Phone JASWINDER MARTINS Next Of [place] [address] [place] [address] EMETERIO MARTIN Next Of Kin Unknown Unavailable ADDEMETERIO DOMINGUEZ Next Of Kin [address] [place] [address] JERICHO QUICK Next Of Kin [address] [place] [address] SHARATH LAND Next Of Kin [address] [place] [address] Unavailable NO ONE, PATIENT PER Next Of Kin [address] [place] [address] SHARATH ROCHE Next Of Kin [address] [place] [address] U Next Of Kin Unknown Unavailable [place] [address] REED BATEMAN Next Of Kin [address] [place] [address] DARIUS BRYANT Next Of Kin [address] [facility], [address] [place] [id number] UNEMPLOYED Next Of Kin Unknown Unavailable NO, CONTACT Next Of Kin Unknown Unavailable JASWINDER BATEMAN Next Of Kin [address] [place] [address] UE Next Of Kin Unknown Unavailable FRANCISCA FORD Next Of Kin [address] [place] [address] REED MARTINS Next Of Kin [address] [place] [address] CHIRAG WHITAKER Next [place] Kin ? [place] [address] RAKESH MENA Next Of Kin [address] [place] [address] DANIELE RANDHAWA Next Of Kin [address] [place] [address] OPHELIA ANGEL Next Of Kin [address] [facility] [address] [place] [address] CAO, JOSE Next [place] [address] MARIANELA, ZENA [place] [address] TRI MENA Next Of Kin [address] [facility] [address] [place] [address] ST Next Of Kin Unknown Unavailable ANASTASIYA TRI Next Of Kin [address] [place] [address] Unavailable RENETTA DAVID Next Of Kin [address] [place] [address] REED CLEMENT Next Of Kin [address] [place] [address] Reed Mccullough [address] [place] [address] Unavailable Care Team Providers Care Recordak Operator Name Role Phone Michelle MCDUFFIE MD Unavailable Unavailable Michelle MCDUFFIE MD Unavailable Unavailable Michelle MCDUFFIE MD Unavailable Unavailable Michelle MCDUFFIE MD Unavailable Unavailable Michelle MCDUFFIE MD Unavailable Unavailable Michelle MCDUFFIE MD Unavailable Unavailable NO, PCP Unavailable Unavailable Bernie Powell MD Unavailable Unavailable Bernie Powell MD Unavailable Unavailable Bernie Powell MD Unavailable Unavailable Bernie Powell MD Unavailable Unavailable Bernie Powell MD Unavailable Unavailable Bernie Powell MD Unavailable Unavailable Bernie Powell MD Unavailable Unavailable Bernie Powell MD Unavailable Unavailable Bernie Powell MD Unavailable Unavailable Bernie Powell MD Unavailable Unavailable Bernie Powell MD Unavailable Unavailable Bernie Powell MD Unavailable Unavailable Bernie Powell MD Unavailable Unavailable Bernie Powell MD Unavailable Unavailable Bernie Powell MD Unavailable Unavailable Bernie Powell MD Unavailable Unavailable Bernie Powell MD Unavailable Unavailable Bernie Powell MD Unavailable Unavailable MollBernie frazier MD Unavailable Unavailable MollBernie frazier MD Unavailable Unavailable MollBernie frazier MD Unavailable Unavailable MollBernie frazier MD Unavailable Unavailable MollBernie frazier MD Unavailable Unavailable MollisonBernie MD Unavailable Unavailable Mollison, Bernie Kingsley MD Unavailable Unavailable MollBernie frazier MD Unavailable Unavailable MollBernie frazier MD Unavailable Unavailable MollisonBernie MD Unavailable Unavailable Mollison, Bernie iKngsley MD Unavailable Unavailable Mollison, Bernie Kingsley MD Unavailable Unavailable Weathers, J Andrea PA Unavailable Unavailable Weathers, J Andrea PA Unavailable Unavailable Weathers, J Andrea PA Unavailable Unavailable Weathers, J Andrea PA Unavailable Unavailable Weathers, J Andrea PA Unavailable Unavailable Weathers, J Andrea PA Unavailable Unavailable Weathers, J Andrea PA Unavailable Unavailable Weathers, J Andrea PA Unavailable Unavailable Weathers, J Andrea PA Unavailable Unavailable Weathers, J Andrea PA Unavailable Unavailable Weathers, J Andrea PA Unavailable Unavailable Weathers, J Andrea PA Unavailable Unavailable Weathers, J Andrea PA Unavailable Unavailable Weathers, J Andrea PA Unavailable Unavailable Weathers, J Andrea PA Unavailable Unavailable Weathers, J Andrea PA Unavailable Unavailable Weathers, J Andrea PA Unavailable Unavailable Weathers, J Andrea PA Unavailable Unavailable Weathers, J Andrea PA Unavailable Unavailable Weathers, J Andrea PA Unavailable Unavailable Weathers, J Andrea PA Unavailable Unavailable Weathers, J Andrea PA Unavailable Unavailable Weathers, J Andrea PA Unavailable Unavailable Weathers, J Andrea PA Unavailable Unavailable Weathers, J Andrea PA Unavailable Unavailable Weathers, J Andrea PA Unavailable Unavailable Weathers, J Andrea PA Unavailable Unavailable Weathers, J Andrea PA Unavailable Unavailable Weathers, J Andrea PA Unavailable Unavailable Weathers, J Andrea PA Unavailable Unavailable Weathers, J Andrea PA Unavailable Unavailable Weathers, J Andrea PA Unavailable Unavailable Weathers, J Andrea PA Unavailable Unavailable Weathers, J Andrea PA Unavailable Unavailable Weathers, J Andrea PA Unavailable Unavailable Weathers, J Andrea PA Unavailable Unavailable Weathers, J Andrea PA Unavailable Unavailable Weathers, J Andrea PA Unavailable Unavailable Anju Pham MD Unavailable Unavailable Anju Pham MD Unavailable Unavailable Anju Pham MD Unavailable Unavailable Anju Pham MD Unavailable Unavailable Anju Pham MD Unavailable Unavailable Anju Pham MD Unavailable Unavailable Anju Pham MD Unavailable Unavailable Anju Pham MD Unavailable Unavailable Anju Pham MD Unavailable Unavailable Anju Pahm MD Unavailable Unavailable Anju Pham MD Unavailable Unavailable Anju Pham MD Unavailable Unavailable Anju Pham MD Unavailable Unavailable Anju Pham MD Unavailable Unavailable Anju Pham MD Unavailable Unavailable Anju Pham MD Unavailable Unavailable Anju Pham MD Unavailable Unavailable Anju Pham MD Unavailable Unavailable Anju Pham MD Unavailable Unavailable Anju Pham MD Unavailable Unavailable Anju Pham MD Unavailable Unavailable Anju Pham MD Unavailable Unavailable Anju Pham MD Unavailable Unavailable Anju Pham MD Unavailable Unavailable Anju Pham MD Unavailable Unavailable Anju Pham MD Unavailable Unavailable Anju Pham MD Unavailable Unavailable Anju Pham MD Unavailable Unavailable Anju Pham MD Unavailable Unavailable Anju Pham MD Unavailable Unavailable Anju Pham MD Unavailable Unavailable Anju Pham MD Unavailable Unavailable Anju Pham MD Unavailable Unavailable Anju Pham MD Unavailable Unavailable Anju Pham MD Unavailable Unavailable Anju Pham MD Unavailable Unavailable Anju Pham MD Unavailable Unavailable Anju Pham MD Unavailable Unavailable Anju Pham MD Unavailable Unavailable Anju Pham MD Unavailable Unavailable Anju Pham MD Unavailable Unavailable Anju Pham MD Unavailable Unavailable Anju Pham MD Unavailable Unavailable Anju Pham MD Unavailable Unavailable Anju Pham MD Unavailable Unavailable Anju Pham MD Unavailable Unavailable Anju Pham MD Unavailable Unavailable Anju Pham MD Unavailable Unavailable Anju Pham MD Unavailable Unavailable Anju Pham MD Unavailable Unavailable Anju Pham MD Unavailable Unavailable Anju Pham MD Unavailable Unavailable Anju Pham MD Unavailable Unavailable Anju Pham MD Unavailable Unavailable Anju Pham MD Unavailable Unavailable Anju Pham MD Unavailable Unavailable Anju Pham MD Unavailable Unavailable Anju Pham MD Unavailable Unavailable Anju Pham MD Unavailable Unavailable Anju Pham MD Unavailable Unavailable Anju Pham MD Unavailable Unavailable Anju Pham MD Unavailable Unavailable Anju Pham MD Unavailable Unavailable Anju Pham MD Unavailable Unavailable Isidra Gibbons NPP Unavailable Unavailable Isidra Gibbons NPP Unavailable Unavailable Isidra Gibbons NPP Unavailable Unavailable MIRTA STANLEY MD Unavailable Unavailable MIRTA STANLEY MD Unavailable Unavailable Marysol Bridges MD Unavailable Unavailable Marysol Bridges MD Unavailable Unavailable Marysol Bridges MD Unavailable Unavailable Marysol Bridges MD Unavailable Unavailable Marysol Bridges MD Unavailable Unavailable Marysol Bridges MD Unavailable Unavailable Marysol Bridges MD Unavailable Unavailable Marysol Bridges MD Unavailable Unavailable Bridges, Marysol Navarro MD Unavailable Unavailable Bridges, Marysol Navarro MD Unavailable Unavailable Bridges, Marysol Navarro MD Unavailable Unavailable Bridges, Marysol Navarro MD Unavailable Unavailable Bridges, Marysol Navarro MD Unavailable Unavailable Bridges, Marysol Navarro MD Unavailable Unavailable Bridges, Marysol Navarro MD Unavailable Unavailable Bridges, Marysol Navarro MD Unavailable Unavailable Bridges, Marysol Navarro MD Unavailable Unavailable Bridges, Marysol Navarro MD Unavailable Unavailable Bridges, Marysol Navarro MD Unavailable Unavailable Bridges, Marysol Navarro MD Unavailable Unavailable Bridges, Marysol Navarro MD Unavailable Unavailable Bridges, Marysol Navarro MD Unavailable Unavailable Bridges, Marysol Navarro MD Unavailable Unavailable Bridges, Marysol Navarro MD Unavailable Unavailable Bridges, Marysol Navarro MD Unavailable Unavailable Bridges, Marysol Navarro MD Unavailable Unavailable Bridges, Marysol Navarro MD Unavailable Unavailable Bridges, Marysol Navarro MD Unavailable Unavailable Bridges, Marysol Navarro MD Unavailable Unavailable Bridges, Marysol Navarro MD Unavailable Unavailable Bridges, Marysol Navarro MD Unavailable Unavailable Bridges, Marysol Navarro MD Unavailable Unavailable Bridges, Marysol Navarro MD Unavailable Unavailable Bridges, Marysol Navarro MD Unavailable Unavailable Bridges, Marysol Navarro MD Unavailable Unavailable Bridges, Marysol Navarro MD Unavailable Unavailable Bridges, Marysol Navarro MD Unavailable Unavailable Bridges, Maryslo Navarro MD Unavailable Unavailable Bridges, Marysol Navarro MD Unavailable Unavailable Bridges, Marysol Navarro MD Unavailable Unavailable Bridges, Marysol Navarro MD Unavailable Unavailable Bridges, Marysol Navarro MD Unavailable Unavailable Bridges, Marysol Navarro MD Unavailable Unavailable Bridges, Marysol Navarro MD Unavailable Unavailable Bridges, Marysol Navarro MD Unavailable Unavailable Bridges, Marysol Navarro MD Unavailable Unavailable Bridges, Marysol Navarro MD Unavailable Unavailable Bridges, Marysol Navarro MD Unavailable Unavailable Bridges, Marysol Navarro MD Unavailable Unavailable Bridges, Marysol Navarro MD Unavailable Unavailable PerlauoMANDY aguayoe ANP-C Unavailable tomaiuo MANDY Richard Laura ANP-C Unavailable tomaiuo [email or web address] MarkaiMANDY tejeda Laura ANP-C Unavailable tomaiuo MANDY Richard Laura ANP-C Unavailable tomaiuo MANDY Richard Laura ANP-C Unavailable tomaiuo MANDY Richard Laura ANP-C Unavailable tomaiuo MANDY Richard Laura ANP-C Unavailable tomaiuo Tomaiuoli, MANDY Laura ANP-C Unavailable tomaiuo TomaiuoJOSE aguayoE Laura ANP-C Unavailable tomaiuo TomaiuoMANDY aguayo Laura ANP-C Unavailable tomaiuo TomaiuoMANDY aguayo Laura ANP-C Unavailable tomaiuo TomaiuoJOSE aguayoE Laura ANP-C Unavailable tomaiuo TomaiuoMANDY aguayo Laura ANP-C Unavailable tomaiuo TomaiuoJOSE aguayoE Laura ANP-C Unavailable tomaiuo TomaiuoMANDY aguayo Laura ANP-C Unavailable tomaiuo TomaiuoJOSE aguayoE Laura ANP-C Unavailable tomaiuo TomaiuoMANDY aguayo Laura ANP-C Unavailable tomaiuo TomaiuoMANDY aguayo Laura ANP-C Unavailable tomaiuo Tomaiuoolivier MANDY Laura ANP-C Unavailable tomaiuo TomaiuoJOSE aguayoE Laura ANP-C Unavailable tomaiuo TomaiuoMANDY aguayo Laura ANP-C Unavailable tomaiuo TomaiuoMANDY aguayo Laura ANP-C Unavailable tomaiuo TomaiuoMANDY aguayo Laura ANP-C Unavailable tomaiuo TomgrisuoMANDY aguayo Laura ANP-C Unavailable tomaiuo TomaiuoMANDY aguayo Laura ANP-C Unavailable tomaiuo TomaiuoJOSE aguayoE Laura ANP-C Unavailable tomaiuo TomaiuoMANDY aguayo Laura ANP-C Unavailable tomaiuo Tomaiuoolivier MANDY Laura ANP-C Unavailable tomaiuo TomaiuoMANDY aguayo Laura ANP-C Unavailable tomaiuo TomaiuoMANDY aguayo Laura ANP-C Unavailable tomaiuo MANDY Richard Laura ANP-C Unavailable tomaiuo [email or web address] PerlauoMANDY aguayo Laura ANP-C Unavailable tomaiuo [email or web address] PerlauoMANDY aguayo Laura ANP-C Unavailable tomaiuo [email or web address] PerlauoMANDY aguayo Laura ANP-C Unavailable tomaiuo [email or web address] PerlauoMANDY aguayo Laura ANP-C Unavailable tomaiuo [email or web address] TomgrisuoMANDY aguayo Laura ANP-C Unavailable tomaiuo [email or web address] TomaiuoMANDY aguayo Laura ANP-C Unavailable tomaiuo [email or web address] TomgrisuoMANDY aguayo Laura ANP-C Unavailable tomaiuo [email or web address] TomaiuoMANDY aguayo Laura ANP-C Unavailable tomaiuo [email or web address] TomaiuoMANDY aguayo Laura ANP-C Unavailable tomaiuo [email or web address] Isidra POTTS MD Unavailable Unavailable Isidra POTTS MD Unavailable Unavailable Isidra POTTS MD Unavailable Unavailable Isidra POTTS MD Unavailable Unavailable Isidra POTTS MD Unavailable Unavailable Isidra POTTS MD Unavailable Unavailable Isidra POTTS MD Unavailable Unavailable Isidra POTTS MD Unavailable Unavailable Isidra POTTS MD Unavailable Unavailable Isidra POTTS MD Unavailable Unavailable Isidra POTTS MD Unavailable Unavailable Isidra POTTS MD Unavailable Unavailable Isidra POTTS MD Unavailable Unavailable Isidra POTTS MD Unavailable Unavailable Isidra POTTS MD Unavailable Unavailable Isidra POTTS MD Unavailable Unavailable Isidra POTTS MD Unavailable Unavailable Isidra POTTS MD Unavailable Unavailable Isidra POTTS MD Unavailable Unavailable Isidra POTTS MD Unavailable Unavailable Isidra POTTS MD Unavailable Unavailable Isidra POTTS MD Unavailable Unavailable Isidra POTTS MD Unavailable Unavailable Isidra POTTS MD Unavailable Unavailable Isidra POTTS MD Unavailable Unavailable Isidra POTTS MD Unavailable Unavailable Isidra POTTS MD Unavailable Unavailable Isidra POTTS MD Unavailable Unavailable Isidra POTTS MD Unavailable Unavailable Isidra POTTS MD Unavailable Unavailable Isidra POTTS MD Unavailable Unavailable Isidra POTTS MD Unavailable Unavailable Isidra POTTS MD Unavailable Unavailable Isidra POTTS MD Unavailable Unavailable Isidra POTTS MD Unavailable Unavailable Isidra POTTS MD Unavailable Unavailable Isidra POTTS MD Unavailable Unavailable Isidra POTTS MD Unavailable Unavailable Isidra POTTS MD Unavailable Unavailable Isidra POTTS MD Unavailable Unavailable Isidra POTTS MD Unavailable Unavailable Isidra POTTS MD Unavailable Unavailable Isidra POTTS MD Unavailable Unavailable Isidra POTTS MD Unavailable Unavailable Isidra POTTS MD Unavailable Unavailable Isidra POTTS MD Unavailable Unavailable Isidra POTTS MD Unavailable Unavailable Isidra POTTS MD Unavailable Unavailable Isidra POTTS MD Unavailable Unavailable Isidra POTTS MD Unavailable Unavailable Isidra POTTS MD Unavailable Unavailable Isidra POTTS MD Unavailable Unavailable Isidra POTTS MD Unavailable Unavailable Isidra POTTS MD Unavailable Unavailable Isidra POTTS MD Unavailable Unavailable Isidra POTTS MD Unavailable Unavailable Isidra POTTS MD Unavailable Unavailable Isidra POTTS MD Unavailable Unavailable Isidra POTTS MD Unavailable Unavailable Isidra POTTS MD Unavailable Unavailable Isidra POTTS MD Unavailable Unavailable Isidra POTTS MD Unavailable Unavailable Isidra POTTS MD Unavailable Unavailable Isidra POTTS MD Unavailable Unavailable Isidra POTTS MD Unavailable Unavailable Isidra POTTS MD Unavailable Unavailable Isidra POTTS MD Unavailable Unavailable Isidra POTTS MD Unavailable Unavailable Isidra POTTS MD Unavailable Unavailable Isidra POTTS MD Unavailable Unavailable Isidra POTTS MD Unavailable Unavailable Isidra POTTS MD Unavailable Unavailable Isidra POTTS MD Unavailable Unavailable Isidra POTTS MD Unavailable Unavailable Isidra POTTS MD Unavailable Unavailable Isidra POTTS MD Unavailable Unavailable Isidra POTTS MD Unavailable Unavailable Isidra POTTS MD Unavailable Unavailable Isidra POTTS MD Unavailable Unavailable Commey, Blaise Unavailable Unavailable Commey, Blaise Unavailable Unavailable Commey, Blaise Unavailable Unavailable Commey, Blaise Unavailable Unavailable Commey, Blaise Unavailable Unavailable Commey, Blaise Unavailable Unavailable Commey, Blaise Unavailable Unavailable Commey, Blaise Unavailable Unavailable Commey, Balise Unavailable Unavailable Commey, Blaise Unavailable Unavailable Commey, Blaise Unavailable Unavailable Commey, Blaise Unavailable Unavailable Commey, Blaise Unavailable Unavailable Commey, Blaise Unavailable Unavailable Commey, Blaise Unavailable Unavailable Commey, Blaise Unavailable Unavailable Commey, Blaise Unavailable Unavailable Commey, Blaise Unavailable Unavailable Commey, Blaise Unavailable Unavailable Commey, Blaise Unavailable Unavailable Commey, Blaise Unavailable Unavailable Commey, Blaise Unavailable Unavailable Commey, Blaise Unavailable Unavailable Commey, Blaise Unavailable Unavailable Commey, Blaise Unavailable Unavailable Commey, Blaise Unavailable Unavailable Commey, Blaise Unavailable Unavailable Commey, Blaise Unavailable Unavailable Commey, Blaise Unavailable Unavailable Commey, Blaise Unavailable Unavailable Commey, Blaise Unavailable Unavailable DEMARTINI, M NEL PA Unavailable Unavailable DEMARTINI, M NEL PA Unavailable Unavailable DEMARTINI, M NEL PA Unavailable Unavailable DEMARTINI, M NEL PA Unavailable Unavailable DEMARTINI, M NEL PA Unavailable Unavailable DEMARTINI, M NEL PA Unavailable Unavailable DEMARTINI, M NEL PA Unavailable Unavailable DEMARTINI, M NEL PA Unavailable Unavailable DEMARTINI, M NEL PA Unavailable Unavailable DEMARTINI, M NEL PA Unavailable Unavailable DEMARTINI, M NEL PA Unavailable Unavailable DEMARTINI, M NEL PA Unavailable Unavailable DEMARTINI, M NEL PA Unavailable Unavailable DEMARTINI, M NEL PA Unavailable Unavailable DEMARTINI, M NEL PA Unavailable Unavailable DEMARTINI, M NEL PA Unavailable Unavailable DEMARTINI, M NEL PA Unavailable Unavailable DEMARTINI, M NEL PA Unavailable Unavailable DEMARTINI, M NEL PA Unavailable Unavailable DEMARTINI, M NEL PA Unavailable Unavailable DEMARTINI, M NEL PA Unavailable Unavailable DEMARTINI, M NEL PA Unavailable Unavailable DEMARTINI, M NEL PA Unavailable Unavailable DEMARTINI, M NEL PA Unavailable Unavailable DEMARTINI, M NEL PA Unavailable Unavailable DEMARTINI, M NEL PA Unavailable Unavailable DEMARTINI, M NEL PA Unavailable Unavailable DEMARTINI, M NEL PA Unavailable Unavailable DEMARTINI, M NEL PA Unavailable Unavailable DEMARTINI, M NEL PA Unavailable Unavailable DEMARTINI, M NEL PA Unavailable Unavailable DEMARTINI, M NEL PA Unavailable Unavailable DEMARTINI, M NEL PA Unavailable Unavailable DEMARTINI, M NEL PA Unavailable Unavailable DEMARTINI, M NEL PA Unavailable Unavailable DEMARTINI, M NEL PA Unavailable Unavailable DEMARTINI, M NEL PA Unavailable Unavailable DEMARTINI, M NEL PA Unavailable Unavailable DEMARTINI, M NEL PA Unavailable Unavailable DEMARTINI, M NEL PA Unavailable Unavailable DEMARTINI, M NEL PA Unavailable Unavailable DEMARTINI, M NEL PA Unavailable Unavailable DEMARTINI, M NEL PA Unavailable Unavailable DEMARTINI, M NEL PA Unavailable Unavailable DEMARTINI, M NEL PA Unavailable Unavailable MCELHERAN, ORIN PA Unavailable [...] Unavailable Unavailable MCELHERAN, ORIN PA Unavailable Unavailable TURRIN, ALLIE Unavailable Unavailable TURRIN, ALLIE Unavailable Unavailable TURRIN, ALLIE Unavailable Unavailable LULÚ, ALLIE Unavailable Unavailable Kimber Cox MD Unavailable Unavailable Kimber Cox MD Unavailable Unavailable Kimber Cox MD Unavailable Unavailable Kimber Cox MD Unavailable Unavailable Kimber Cox MD Unavailable Unavailable Kimber Cox MD Unavailable Unavailable Kimber Cox MD Unavailable Unavailable Kimber Cox MD Unavailable Unavailable [place], A Jean Paul MD Unavailable Unavailable [place], A Jean Paul MD Unavailable Unavailable [place], A Jean Paul MD Unavailable Unavailable [place], A Jean Paul MD Unavailable Unavailable [place], A Jean Paul MD Unavailable Unavailable [place], A Jean Paul MD Unavailable Unavailable [place], A Jean Paul MD Unavailable Unavailable [place], A Jean Paul MD Unavailable Unavailable [place], A Jean Paul MD Unavailable Unavailable [place], A Jean Paul MD Unavailable Unavailable [place], A Jean Paul MD Unavailable Unavailable [place], A Jean Paul MD Unavailable Unavailable [place], A Jean Paul MD Unavailable Unavailable [place], A Jean Paul MD Unavailable Unavailable [place], A Jean Paul MD Unavailable Unavailable [place], A Jean Paul MD Unavailable Unavailable [place], A Jean Paul MD Unavailable Unavailable [place], A Jean Paul MD Unavailable Unavailable [place], A Jean Paul MD Unavailable Unavailable [place], A Jean Paul MD Unavailable Unavailable [place], A Jean Paul MD Unavailable Unavailable [place], A Jean Paul MD Unavailable Unavailable [place], A Jean Paul MD Unavailable Unavailable [place], A Jean Paul MD Unavailable Unavailable [place], A Jean Paul MD Unavailable Unavailable [place], A Jean Paul MD Unavailable Unavailable [place], A Jean Paul MD Unavailable Unavailable [place], A Jean Paul MD Unavailable Unavailable [place], A Jean Paul MD Unavailable Unavailable [place], A Jean Paul MD Unavailable Unavailable [place], A Jean Paul MD Unavailable Unavailable [place], A Jean Paul MD Unavailable Unavailable [place], A Jean Paul MD Unavailable Unavailable [place], A Jean Paul MD Unavailable Unavailable [place], A Jean Paul MD Unavailable Unavailable [place], A Jean Paul MD Unavailable Unavailable [place], A Jean Paul MD Unavailable Unavailable [place], A Jean Paul MD Unavailable Unavailable [place], A Jean Paul MD Unavailable Unavailable [place], A Jean Paul MD Unavailable Unavailable [place], A Jean Paul MD Unavailable Unavailable [place], A Jean Paul MD Unavailable Unavailable [place], A Jean Paul MD Unavailable Unavailable [place], A Jean Paul MD Unavailable Unavailable [place], A Jean Paul MD Unavailable Unavailable [place], A Jean Paul MD Unavailable Unavailable [place], A Jean Paul MD Unavailable Unavailable [place], A Jean Paul MD Unavailable Unavailable [place], A Jean Paul MD Unavailable Unavailable [place], A Jean Paul MD Unavailable Unavailable [place], A Jean Paul MD Unavailable Unavailable [place], A Jean Paul MD Unavailable Unavailable [place], A Jean Paul MD Unavailable Unavailable [place], A Jean Paul MD Unavailable Unavailable [place], A Jean Paul MD Unavailable Unavailable [place], A Jean Paul MD Unavailable Unavailable [place], A Jean Paul MD Unavailable Unavailable [place], A Jean Paul QUEZADA Unavailable Unavailable [place], A Jean Paul QUEZADA Unavailable Unavailable [place], A Jean Paul QUEZADA Unavailable Unavailable [place], A Jean Paul QUEZADA Unavailable Unavailable [place], A Jean Paul QUEZADA Unavailable Unavailable [place], A Jean Paul QUEZADA Unavailable Unavailable [place], A Jean Paul QUEZADA Unavailable Unavailable [place], A Jean Paul QUEZADA Unavailable Unavailable [place], A Jean Paul QUEZADA Unavailable Unavailable [place], A Jean Paul QUEZADA Unavailable Unavailable [place], A Jean Paul QUEZADA Unavailable Unavailable [place], A Jean Paul QUEZADA Unavailable Unavailable [place], A Jean Paul QUEZADA Unavailable Unavailable [place], A Jean Paul QUEZADA Unavailable Unavailable [place], A Jean Paul QUEZADA Unavailable Unavailable [place], A Jean Paul QUEZADA Unavailable Unavailable [place], A Jean Paul QUEZADA Unavailable Unavailable [place], A Jean Paul QUEZADA Unavailable Unavailable [place], A Jean Paul QUEZADA Unavailable Unavailable [place], A Jean Paul QUEZADA Unavailable Unavailable Aloi, M Andrea SECRETARY OF POLICE Unavailable Unavailable Aloi, M Andrea SECRETARY OF POLICE Unavailable Unavailable Aloi, M Andrea [employer] POL[employer] Unavailable Unavailable Aloi, M Andrea [employer] POLICE Unavailable Unavailable Aloi, M Andrea [employer] POLICE Unavailable Unavailable Aloi, M Andrea SE[employer]ET[employer] OF POLICE Unavailable Unavailable Aloi, M Andrea SECRETARY OF POLICE Unavailable Unavailable Aloi, M Andrea SECRETARY OF POLICE Unavailable Unavailable Aloi, M Andrea SECRETARY OF POLICE Unavailable Unavailable Aloi, M Andrea SECRETARY OF POLICE Unavailable Unavailable Aloi, M Andrea SECRETARY OF POLICE Unavailable Unavailable Aloi, M Andrea SECRETARY OF POLICE Unavailable Unavailable Aloi, M Andrea SECRETARY OF POLICE Unavailable Unavailable Aloi, M Andrea SECRETARY OF POLICE Unavailable Unavailable Aloi, M Andrea SECRETARY OF POLICE Unavailable Unavailable Aloi, M Andrea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
[2021-04-10] MEDS ORDERED: ALBU8.5H (00:11)
--- OUTSIDE RECORDS SUMMARY | 2021-04-10 00:24 | CCD ---
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 sv3OHVMkFJGuJpWhLEQkALGcAQYuFNvkTCIzGMX7MPS6JZZzZJShHZ4VTmDrIMVgZrM0PRKzVBNtFSLf cd0ASIZrWXY1JPScATKqBYGyZLNxQOifNRGoCTE6OjB8RJArMNShZW0IOmCtMSWoRIn7ReSnYYYaFILh lt0HSHZlRHO1HTpyUMDkCQEdGUFvBCbjKYVrMMU9RW VvLGXqGXYuYD8SGwUzSKWcDDwuDvrvSXDoHXDxhk4JSHAnSXP7CWz9JBKwJOMrCEIfSXwySRPjWWOcDI T7HROvLJDnVI2YYzEmTMIwIUGaSsNxKPCtAIWkjq0NVBVbWQR6XEP2PlLgGCGxYNTzORpjJMQhPGXgZY D7ZELwIWTsGU4SRoJnJOLhROV1HLYyDWQvWTNpsn8M QRQiEJN9XPjsKOXkHAUkQMYeCEj6haJlpCAwAMm3JV0HX7MqnjThBDfHHz8Ka118MRS2XGGlIk1TR4ew Ts9bUGGsCFCOZm0VYWx1JvIgBMsoFVFrEHHyFyYqJxPoY5HsI2MsVan8LBp3T6S+KBtuT2T6WBIhATY7 ZJK4TUX5QfPuP8JjYnBjKFo7LZs7Bl7qQVMXAb8+LUpvfUIehVmwXCASKaCeQMSwHTayXRHYDr6Z ID Date Data Source [id number] 09/23/2020 10:15:08 AM T [facility] Name Value Range Interpretation Code Description Data Kayleen rce(s) Supporting Document(s) [facility] JEALFj0oHfJYVhSgj6CrIgUwLUAvCI6pqzc9K3E2sXRzR6SqvGEym2irP7JeL2DpWWInUWPMDT0JdRHq jb2 [file] wKiBUQOjBqYkjaSRdJJOYiTUwKiBUQOjBkYNjBoYNT DxGNXKqTHTG1eTSe8yNyz1rZdv7LTepAZUsdV6R7L8NYMf6ZMQuDBbDSvueW03holS47Xz2PRonS0qra T7KXj0WsmxObehM0CHk9LyirB2XLJ2LOd0XYcvWN4SOe2XG9AGDpvqqTMkVfSkIIatypTvXuUpBVhznF 6PXXjR97YeRYcWj9weMZpESbvH7RqURSxW26LqyIQ1 CccnN1JyTVpfKY+N5EmMGTkQ70XrGAjbEWLzvHZMu8NQRA9CPpL6AGfS+aws solution architect+aws solution architect+aws solution architect+UTjfKJxPtE4 [file] Q7s3Mea1UnrxIW5FVeECKnPG1CRRkIHHdzhUpOPRPYgrIMcf3mNjyqz21gRwm+Holden/dovZQsQaNV8dw3 XVFxYNO3OLRVZCGkctVLWUdtwFb8XGDGwdDEYjplKRbLlHNANqPjdy6huXjQ5fm32z+sImbjO7qSfb5x dSJSC1+kJsryWTKmUasgoDqQgPzjaIS3qlsmNNyBL0 f8V8QQk+pVY/xpXMKYEVNznoKJZRND06lepYMPPDNEXTNpVAHlxlOMRvNNiEtBxUHhhxGGfNtDdw0KKL 5iqbFoSjjexJSSWMSADXSVaifwUKqTGkLBJayHMKiL2/VD+WNVFY/XiOQJXnSEVsxW1RZeSXyjlpqaf5 nrla1izuTMVT4guReOcsrKoNkPCDKYDbDXBX4vztEP FeYVSzQBKS6ns3FFkPemK9MnB8DV0KFj7SWOdgx4DNGUVcBLYi45mIVyb5ysBBxkvk4D5gOxZJGE8rtC PBSjBoZwOaWkAlyISu43hyh/2FGBNMRPEecvNxULLpNZJjqEQXyAD6JcPjNhuiglOWFAUkTYFAvhRScU HRPa2nbKi/2Y8lp/hFGY3yz2CHQPRK3qeQtLrrmOoB f0widN6q+KAofxAfYRyAPLK4hsGnNSYrFMEgfJFAjAP6WsTsKwcjgyMFHhWoo1CCocALWI8DCToPnW3N GjeXBMqTEMcvgXEqpFTiFhNHrm4L1fkq0J7CBghpTEBQZVGZASXiZ9HhfRgZqEgKyhO699jqnzIXAiJZ 3NffPmZrDyGdk7DIFEOIHuzKQMVvdDrTaV5zgzXKMu OTLrBuNE7pq8QSNdXHY0FBLRSDAkofXB2dgeY2llgnVAf7BXOUTXhTGHhRWJPV2zCLlbtSqwWbbmOSqo gWhhOyvyXMvhiFVIV7IS0K4MnPfsQsqBSpPYEC6sPUxEhPk4ctvZzr1eWg8ur+LMewJLqMfI4+yrg1WA /Vsx/VLyAf2L4YWqsmqCCVVasrYdDVBISrMKcnCD2y kXSSTmIkRuIkTjJIjgYf/+xUl34pvnE2nuXVM242x7/I21+/ffofb+8/4UtcMdwB83Xst/vth/cfP/72 799//Ju3zz/61mCpx1/rg3NR9dpuE9/6fZ5LLQyjijJzUS8/FEUF84046Fp5rfS5ZmffnH1LqR//Oqkb /v7jd9/76l76H4+++dP7t6/ff/Hl5+++evvumy9/8/ 7Dxy8//oPS7y88/m3Y192g3j09+73nD538//bh/acPX77/kY55fRN6o0a1W4+yd/cIq7oH+S4ktiOle0 qxiFf7sA2/f/fhiy/f/Tt/e9+N77/37Yr2L4/57S6F08/vXt/42qvPv/3611+9/y/registered diet technician/47/bQfzS248v 3nf//+i7f/n3/EZk82K6/z7f1/v/ny29c+vv/8P318 e/ebd19+7p0DD68/d/2wHn5oh/r8T3/859//+ccf/untv/7b229+/4c/fP/manager pool//w/R/+5u2L7//4+x/+ 8PaP/0HmP/7125/++NZ/KfOXeWDkuo/T62eKl0//QsVcUXR/rNqPP/7yX/x2ZiJfnX03f8+Lg7iTEhqb f/d/APMnzwPjb6+/IzXCQKy2lR14pkTEImNrN3f0n/ sCeAr36/DBXE66vn1Stf59/+DDD//1t8ztQ94J6i5+calj8Psvf//+/YazrknKkB7s/3Q0/dQ9G7oVCb b/QGlwzvL5j03D4alCztHUdIgUT/vND3/43177+/P3//sAUc86fds9ayc27a/9qRCQ3pQko0J+/ukb/v rD2+//+K8//Pl//eHO68nhRA/73xGwv8PlL//0zf7h w8e3f/qfr33//Z/++POPzypyP/v4+oiH/cOnX/7Dp9/oVJbf0D1oY/zSeth0elxmNZ3/1oiEvd202/Kw X/yEiZD1/wL02meWs/xdw48k7//vH/7lL8+b57ip/eI/f/fVL+1lHc4sd/nbv/35H//6Z3+9j8N//OHH 7//wkyMcP+Gff/8/f/f9v/z++z/+4Kt5Mdg9789+/E w//KrvHx1fZ9/7zKhTvuBSrQBu/umH3/33P/7+d6+v+Ow+QCrjZ3+bbTfqb//lX1/j5p8++/Bs8Solw/ rM98jqgf36v13//f6bTx8/312dwo30h//k/cScg4MxLD/9/X/74U3e/lBYo3E4dn2qvknA4/m+7kpv71 +IcSo4K3s4sM4vUitJ7kukY6+8//DN7hT3tNN67cFU v/3nw7qencd+oBK0XQI/Z7eIdANGLF1kc1SiZMWwXlAtOE2lntfyLMHaWF5npcx3K7IlfImtGXuVGVAn Of0hiSQpIR4HKGI9SNhsOEUdGCIrU5UrwE2mR21hwDUhPcBmGYETQY9YqcZ3VIC4JRC7NSZtQpVsLOOy IM45ERMjSFGWZv1vhcDoHtkWKrFmBA1zcop3R8Q3nR McL224bPayrvIcXP6Yz7QqpOScKN2JaOKcmLVpTOUlEKQaO5tld7UoMOpmZKEWAl3wzvRnIfnPSkTvDM 4avel3Y6M1jMipswFmXTXRHZrsGwxbUT0oxXfqiyekJ9LfyIRtPAPoS3NkKCMdb44OKSDxEEmSKgCsIe KqBRX2INYbDDqkWxEgFKRwWYJgWYYzNS9RxWWyLDEr PDXJIFjtDjntMMVjfS1exEWVx6MbZD3ITcVXE3aMGSRaCJCGUNFTTLxnPls2WHSiAebqH4D4AjotL9Sm UF0HM0RgHNAuMSXDTFMmfcYjCD3XepZkaJ8cZOlYGSDPKVwWDQgyAwB8r76fblGOEGUgMMTwSGhbZXSh BMFkDLCgOPMpNXGxJPGlPIUcCY9BJ3XcZJCcNAOCMU J6q4ScBIMbotihyxbdLr9genQmQlj+JzfbPUTrx9IqHQwjE6M9jNYsV1AsF2CgHE8KjYHhQTzcCZKjXX RuQPVwY916siQaEB7+UX1xx8DzBnllRGKYYDSsSPBuAYEtRGF4KfXfTGAdGGTlCHQmMyX7TbSqOjHCDW ZdCDR2RkI2OJVkFWBkFSCtUDegQAVmUDRgLMVqBPVd KUAkDP0sMvYgFEJuAmEkSYtoWKAkSGXuldKEYYTeIGXjUJRgWWW7AUAjTVGbWHguSCWeEIPhLUK2BSEa CERuYF5xSlGaEGRyYENdMqpwZHBnAWRcfuIXJGKeFNDrRHL2XzQfLGKxXRFaUDqfHPTlJTPwRqk5ZMJh HINbCP7xMxMbVJKiGJC0KLgcODDaMMZpphFMXXEcAP WmKFDsNcAmODIgXDOtKJieQQXiKOKiZgYoXDXmRLLqGU4yRwLrGXXrXHI7LDAgMGIqCHMengJGYPUtCR AvEMr7ZUZbPXOyKSEgRYctPADtCCOmXRO1NLCvGCQdJU0tMeMdJMUaAGZtHGStMRUnJWTfhyVVSPPeQW GdHUP3IWJhTDHwQWItCRgwZSMgKKOuJjl5LXChQQVb NA3fPvJfIPAtJDJ3KMNdJQGnHFCewfABTOTiEIL2XGn2QEUoFCNiBQAgOReoPWEsXTRpChZ4EWUdHWHn SG6dWjOwVJUxJCM1QqUuITMrURQqpyWJOTRhPWQtMCI2BeXmUFRbVTYeVIkyVPAcHMOlRCDiLFZ4HUS0 TVRtVmXfDPbjQSYORXzZR9BgvtCoHwKLG6tfKb2tTj WbCXOXX7Pbf3ViLFMyLDGHZk8+YoW3TTJ7oSFlCgi9WlH3UxmhOTRBHb== ID Date Data Source [id number] 09/22/2020 07:45:57 PM EDT [facility] Name Value Range Interpretation Code Description Data Kayleen rce(s) Supporting Document(s) Amphetamine [Presence] in Urine by Screen method Negative [facility] Benzodiazepines [Presence] in Urine by Screen method Negat [facility] Cannabinoids [Presence] in Urine by Screen method Negative [facility] (NOTE)Positive results are presumptive a nd unconfirmed;confirmatorytesting can be ordered at the [facility] [place] [address] at [phone] within 5 days of collection. [facility]Pres[facility] [Presence] in Urine by Screen method Negative [facility] Opiates [Presence] in Urine by Screen method Negative [facility] Oxycodone [Presence] in Urine by Screen method Negative [facility] Fentanyl+Norfentanyl [Presence] in Urine by Screen method Negative [facility] (NOTE)Positive results are presumptive a nd unconfirmed;confirmatorytesting can be ordered at the [facility] [place] [address] at [phone] within 5 days of collection. Service comment [facility] Results below the indicated cutoff (ng/m L), are reported as"Negative." Note: for medical purposes only; not valid for legalor employment testing. ID Date Data Source [id number] 08/22/2020 02:53:00 PM EDT [facility] Name Value Range Interpretation Code Description Data Kayleen rce(s) Supporting Document(s) SARS-CoV-2 (COVID 19) NEGATIVE - SARS-CoV-2 (COVID19) [facility] This lab was ordered by [facility] a nd reported by [facility]. ID Date Data Source [id number] 07/20/2020 12:00:00 AM EST [facility] Name Value Range Interpretation Code Description Data Kayleen rce(s) Supporting Document(s) SARS-CoV2 Rapid Antigen Negative [facility] This lab was ordered by [facility] and reported by [facility]. ID Date Data Source [id number] 05/24/2020 07:33:02 PM EST [facility] [employer] [facility] [employer] Name Value Range Interpretation Code Description Data Kayleen rce(s) Supporting Document(s) HEMOGLOBIN A1C @ 5.3 % (4.0-6.0) [facility] - CORE Performed using Siem[employer] [place] immunoassa y.Care must be taken when interpreting [id number] in patients with a hemoglobin variantor decreased erythrocyte lifespan. Values 5.7 - 6.4% suggest prediabetes.Values >=6.5% are diagnostic for diabetes.REFERENCE: DIABETES CARE 2018: 41(S13-S27). EST AVERAGE GLUCOSE 105 mg/dL Laboratory [facility] ID Date Data Source [id number] 05/24/2020 07:47:30 PM EST [facility] - CORE Name Value Range Interpretation Code Description Data Kayleen rce(s) Supporting Document(s) TSH,ULTRASENSITIVE @ 0.801 mIU/L (0.360-4.170) Laboratory [facility] Procedure Social History Code Duration Value Status Description Data Source(s ) Alcohol intake 06/21/2020 12:00:00 AM EST Not Currently completed [facility] Cigarettes smoked current (pack per day) - Reported 06/21/19 12:00:00 AM EST UNK completed [facility] Smoking 06/21/2020 12:00:00 AM EST Current every day smoker co mpleted Current every day smoker [facility] Vital Signs ID Date Data Source UNK Name Value Range Interpretation Code Description Data Source(s) Body temperature 97.5 [degF] 97.5 [degF] [facility] ([facility]) Body temperature 96.9 [degF] 96.9 [degF] [facility] ([facility]) Body temperature 96.2 [degF] 96.2 [degF] [facility] ([facility]) Body temperature 96.2 [degF] 96.2 [degF] [facility] ([facility]) Oxygen saturation in Arterial blood by Pulse oximetry 99 % 99 % [facility] ([facility]) Body weight 141.070 kg 141.070 kg [facility] ([facility]) Body temperature 99.1 [degF] 99.1 [degF] [facility] ([facility]) Body height 69 [in_i] 69 [in_i] [facility] ([facility]) 5'9" Body surface area Derived from formula 2.49 m2 2.49 m2 [facility] ([facility]) Body weight 311.00 [lb_av] 311.00 [lb_av] [facility] ([facility]) Body mass index (BMI) [Ratio] 45.9 kg/m2 45.9 k g/m2 [facility] ([facility]) [place] body weight 145 [lb_av] 145 [lb_av[facility] Systolic blood pressure 148 mm[Hg] 148 mm[Hg] [facility] ([facility]) Diastolic blood pressure 81 mm[Hg] 81 mm[Hg] [facility] ([facility]) Heart rate 58 /min 58 /min [facility] ([facility]) Respiratory rate 18 /min 18 /min [facility] ( [facility]) Body height 175.3 cm 175.3 cm [facility] Body weight 140.615 kg 140.615 kg [facility] Body mass index (BMI) [Ratio] 45.78 kg/m2 45.78 kg/m2 [facility] Body temperature 97.5 [degF] 97.5 [degF] [facility] ([facility] ) Body height 68.5 [in_i] 68.5 [in_i] [facility] ([facility] 5'8.50" Body weight 310.12 [lb_av] 310.12 [lb_av] [facility] ([facility] ) Body mass index (BMI) [Ratio] 46.5 kg/m2 46.5 k g/m2 [facility] ([facility] ) Body temperature 97.5 [degF] 97.5 [degF] [facility] ([facility] ) Patient Treatment Plan of Care Planned Activity Planned Date Details Description Data Source (s) gabapentin 600 MG Oral Tablet 06/14/2020 12:00:00 AM [facility]
[2021-04-10] MEDS ORDERED: AUGMENTIN 875 MG TAB PO ONE (01:25)
[2021-04-10] MEDS ORDERED: FLUTISP NARES (01:33)
[2021-04-10] MEDS ORDERED: AUGM875T28 PO (01:33)
[2021-04-10 02:09] VITALS: BP 146/78
== END 2021-04-10 02:11 | disposition home or self-care (01) ==
LOC: M ED 21:45
DX: B97.4 Respiratory syncytial virus as the cause of diseases classified elsewhere (principal); J01.90 Acute sinusitis, unspecified; H66.91 Otitis media, unspecified, right ear; Z87.891 Personal history of nicotine dependence; Z91.010 Allergy to peanuts; Z91.012 Allergy to eggs; Z88.2 Allergy status to sulfonamides